=== PATIENT | male | born 1985 | race Two or more races ===

== ENCOUNTER 2020-10-28 15:34 | Emergency (ER) | payer OTHER, SELFPAY ==
--- NOTE | ~2020-10-28 | XR_ITS ---
EXAMINATION: XR CHEST CLINICAL INFORMATION: Question COVID COMPARISON: 02/20/2013 TECHNIQUE: Frontal view of the chest was obtained. FINDINGS: Lung volumes are slightly diminished from the prior study. No focal consolidation or mass. Normal pulmonary vascularity. No pleural effusion or pneumothorax. Normal heart size. No acute osseous abnormality. XR/XR chest 1V IMPRESSION: No acute pulmonary disease.
[2020-10-28 15:55] VITALS: BP 116/77; BP 170/100; PULSE 101; PULSE 90; RESP 16; TEMP 37.1; O2SAT 94; O2SAT 95; BMI 30.7
--- NOTE | 2020-10-28 16:14 | ED.GENADULT ---
HPI - General Adult General Chief complaint: Syncope Stated complaint: syncopal Time Seen by Provider: 10/28/20 16:14 Source: patient Mode of arrival: ambulatory Limitations: no limitations History of Present Illness HPI narrative: Patient otherwise healthy been having body aches nausea diarrhea for last 2 days went to clinic today and they did COVID testing result pending still feeling weak felt like passing out no chest pain no significant shortness of breath no cough family member sick Onset (ago): day(s) (2) Related Data Previous Rx's Medication Instructions Recorded ondansetron 4 mg PO Q6-8H PRN #7 tab 10/28/20 Allergies Allergy/AdvReac Type Severity Reaction Status Date / Time metoclopramide [From Reglan] AdvReac Palpitation Verified 10/28/20 16:00 s ANTINAUSEA MEDICATION Allergy Severe TACHYCARDIA Uncoded 03/18/20 17:01 Review of Systems Review of Systems: Constitutional : No Weight loss, No Fever, No Chills ENT/Mouth : No sore throat, No Rhinorrhea Eyes: No Eye Pain, No Swelling Cardiovascular : No Chest Pain, no palpitations Respiratory : No Cough, No Sputum, no shortness of breath Gastrointestinal : + Nausea, No Vomiting, + Diarrhea, No abdominal Pain, no black stools Genitourinary : No Dysuria, No Urinary Frequency Musculoskeletal : No joint pain, No Myalgias, No Joint Swelling Skin : No Skin Lesions, No rash Neuro : ++ Weakness, No Numbness, + Dizziness, No Headache Psych : No Anxiety/Panic, No Depression Heme/Lymph: No Bruising, No Lymphadenopathy Endocrine : No Polyuria, No Polydipsia All other systems reviewed and are negative [facility] Past Medical History Medical History Anxiety Asthma Social History Social History Alcohol intake: never Smoking Status: Never smoker Use of substances other than those prescribed or required for medical reasons: No Advance Directives: No Advance Directives Information Provided: No Physical Exam Vital Signs: Vital Signs: Last Vital Signs Temp 99.5 F 10/28/20 16:55 Pulse 87 10/28/20 16:55 Resp 15 10/28/20 16:55 BP 109/69 10/28/20 16:55 Pulse Ox 96 10/28/20 17:05 Body Mass Index 30.7 Appearance: Alert. Oriented X3. No acute distress. Eyes: PERRLA, No Nystagmus ENT: Pharynx normal. Oral Mucosa moist Neck: Normal inspection. Neck supple. CVS: Normal heart rate and rhythm. Pulses normal. Respiratory: No respiratory distress. Equal air entry bilateral, no wheezing/rales/rhonchi Abdomen: Soft and nontender. Bowel sounds are present, no mass palpable, no CVA tenderness Skin: Skin warm and dry. Normal skin color. Normal skin turgor. Extremities: No lower extremity edema. No calf tenderness Neuro: Oriented X 3. No motor deficit. No sensory deficit.No cerebellar signs , cranial nerves II-XII intact Medical Decision Making MDM Narrative Medical decision making narrative: Patient COVID-19 not hypoxic chest x-ray negative will discharge patient home for symptomatic treatment Lab Data Lab results reviewed: Yes I reviewed the patient's lab results. Result diagrams: 10/28/20 16:46 10/28/20 16:46 Labs: Lab Results 10/28/20 10/28/20 10/28/20 Range/Units 16:46 16:46 16:46 WBC 5.5 (4.8-10.8) X10*3/uL RBC 4.85 (4.60-5.80) X10*6/uL Hgb 14.2 (14.0-18.0) g/dl Hct 43.2 (42-52) % MCV 89.1 (80-98) fL MCH 29.3 (27.0-33.0) pg MCHC 32.9 (31.0-36.0) g/dl RDW 13.1 (11.0-16.0) % Plt Count 164 (160-400) X10*3/uL MPV 11.2 (9.4-12.4) fL Immature Gran % (Auto) 0.4 (0.0-0.4) % Neut % (Auto) 70.2 (45-73) % Lymph % (Auto) 11.6 L (20-40) % [place] % (Auto) 17.4 H (2-11) % Eos % (Auto) 0.2 (0-4) % Baso % (Auto) 0.2 (0-2) % Lymph # (Auto) 0.6 L (1.2-4.9) X10*3/uL [place] # (Auto) 1.0 (0.1-1.2) X10*3/uL Eos # (Auto) 0.0 (0.0-0.4) X10*3/uL Baso # (Auto) 0.0 (0.0-0.2) X10*3/uL Abs Immat Gran (auto) 0.02 (0.00-0.03) X10*3/uL Absolute Neuts (auto) 3.9 (2.0-8.3) X10*3/uL Absolute Nucleated RBC 0.000 (0.0-0.012) X10*3/uL Nucleated RBC % (auto) 0.0 (0.0-0.2) /100WBC Smear Tech's Comments VERIFIED Sodium 136 (135-145) mmol/L Potassium 3.6 (3.3-5.1) mmol/L Chloride 104 (96-108) mmol/L Carbon Dioxide 21 L (22-29) mmol/L Anion Gap 15 (12-20) BUN 14 (9-16) mg/dL Creatinine 1.28 (0.5-1.4) mg/dL Estim Creat Clear Calc 84.8 Estimated GFR > 60 Random Glucose 119 H (60-115) mg/dL Calcium 8.8 (8.4-10.2) mg/dL COVID-19 ([facility]) Positive A (Negative) COVID-19 Clin Com See Note Discharge Plan Discharge Clinical Impression: COVID-19 Patient Disposition: Home, Self-Care Instructions: COVID-19 (Coronavirus Disease 2019) (ED) Additional Instructions: Drink plenty of fluid social distancing report to the ER if increased shortness of breath Prescriptions: New ondansetron 4 mg tablet,disintegrating 4 mg PO Q6-8H PRN (Reason: nausea and vomiting) Qty: 7 RF: 0 Stand Alone Forms: Work/School Release
[2020-10-28] MEDS: 0.9 % Sodium Chloride 1,000 ML 999 ML IVCONT (16:47)
[2020-10-28] MEDS: ondansetron HCL 4 MG/2 ML VIAL IVPUSH (16:53)
[2020-10-28 16:55] VITALS: BP 109/69; PULSE 87; RESP 15; TEMP 37.5; O2SAT 96
[2020-10-28 16:59] LABS: Basophils Percent Auto 0.2 % (0-2); Eosinophils Percent Auto 0.2 % (0-4); Hematocrit 43.2 % (42-52); Hemoglobin 14.2 g/dl (14.0-18.0); Imm Gran Abs Auto 0.02 X10*3/uL (0.00-0.03); Imm Gran Pct Auto 0.4 % (0.0-0.4); Lymphocytes Absolute Auto 0.6 X10*3/uL (1.2-4.9); Lymphocytes Percent Auto 11.6 % (20-40); MANUAL DIFF FLAG SCAN; Mean Corpuscular HGB Conc 32.9 g/dl (31.0-36.0); Mean Corpuscular Hemoglobin 29.3 pg (27.0-33.0); Mean Corpuscular Volume 89.1 fL (80-98); Mean Platelet Volume 11.2 fL (9.4-12.4); Monocytes Percent Auto 17.4 % (2-11); Neutrophils Absolute Auto 3.9 X10*3/uL (2.0-8.3); Neutrophils Percent Auto 70.2 % (45-73); Platelet Count 164 X10*3/uL (160-400); Red Blood Count 4.85 X10*6/uL (4.60-5.80); Red Cell Distribution Width 13.1 % (11.0-16.0); SCAN SMEAR FLAG 1; White Blood Count 5.5 X10*3/uL (4.8-10.8)
--- NOTE | 2020-10-28 17:04 | PC.NURSE ---
iv inserted, labs drawn, covid swab obtained, ekg performed, property assessment monitor applied- nsr 80s, vss, will continue to monitor
[2020-10-28 17:05] VITALS: O2SAT 96
[2020-10-28 17:05] LABS: COVID-19 Test Positive (Negative); IDNOW Serial# 9DD0AD1C
--- NOTE | 2020-10-28 17:05 | PC.NURSE ---
pt medicated per order
[2020-10-28 17:14] LABS: Anion Gap 15 (12-20); Blood Urea Nitrogen 14 mg/dL (9-16); Calcium 8.8 mg/dL (8.4-10.2); Carbon Dioxide 21 mmol/L (22-29); Chloride 104 mmol/L (96-108); Creatinine Clr Calc Pharmacy 84.8; Estimated Glomerular Filt Rate > 60; Glucose Random 119 mg/dL (60-115); Potassium 3.6 mmol/L (3.3-5.1); Sodium 136 mmol/L (135-145)
[2020-10-28 17:22] LABS: SLIDE REVIEW VERIFIED
[2020-10-28 18:29] VITALS: BP 113/72; PULSE 72; RESP 18; TEMP 37.4; O2SAT 97
--- NOTE | 2020-10-28 18:33 | PC.NURSE ---
pt is discharged, waiting in room for brother to get here, charge and nurse in section aware
--- NOTE | 2020-10-30 07:18 | ECG_ITS ---
Test Reason : SYNCOPE Blood Pressure : / mmHG Vent. Rate : 084 BPM Atrial Rate : 084 BPM P-R Int : 136 ms QRS Dur : 104 ms QT Int : 370 ms P-R-T Axes : 060 011 035 degrees QTc Int : 437 ms Normal sinus rhythm Normal ECG When compared with ECG of 21-FEB-2013 01:26, Vent. rate has increased BY 45 BPM Referred By: Von Whitaker Electronically Signed By:MILTON NASH MD
== END 2020-10-28 18:33 | disposition home or self-care (01) ==
PROVIDERS: Emergency Provider Internal Medicine
DX: U07.1 COVID-19 (principal)
CPT/HCPCS: 36415; 71045; 80048; 85025; 87635; 93005; 96361; 96374; 99284; 99285; J2405

== ENCOUNTER 2021-05-07 07:09 | Emergency (ER) | payer OTHER, SELFPAY ==
[2021-05-07 07:31] VITALS: BP 124/87; PULSE 84; RESP 16; TEMP 36.6; O2SAT 99; BMI 31.3
--- NOTE | 2021-05-07 07:41 | ED_ITS ---
HPI - Abdominal Pain General Chief Complaint: Abdominal Pain Stated Complaint: abd issues Time Seen by Provider: 05/07/21 07:39 History of Present Illness HPI narrative: Patient is a 35-year-old male presents today with having abdominal pain. The pain is over the epigastric area. Sometimes worse at night. The pain is burning. It has been ongoing. Had a history of H pylori. Question adenopathy in the past. No history of abdominal surgery. No chest pain or shortness of breath or diaphoresis. Patient is from home. No cough no congestion or upper respiratory symptoms. No change in bowel movement. No vomiting. Patient from home. Patient try Prilosec last night to no avail. Was previously treated for H pylori. Patient complained of multiple bowel movements per night. Sometimes diarrhea. Related Data Previous Rx's Medication Instructions Recorded ondansetron 4 mg disintegrating 4 mg PO Q6-8H PRN #7 tab 10/28/20 tablet Allergies Allergy/AdvReac Type Severity Reaction Status Date / Time metoclopramide [From [facility]] AdvReac Palpitation Verified 10/28/20 16:00 s ANTINAUSEA MEDICATION Allergy Severe TACHYCARDIA Uncoded 03/18/20 17:01 Review of Systems Review of Systems No fever no chills no cough no congestion or upper respiratory symptoms Positive epigastric pain + diarrhea All systems reviewed otherwise negative Yes all other systems are reviewed and are negative Physical Exam Vital Signs: Vital Signs: Last Vital Signs Temp 98 F 05/07/21 07:31 Pulse 60 05/07/21 09:02 Resp 16 05/07/21 09:02 BP 141/88 H 05/07/21 09:02 Pulse Ox 98 05/07/21 09:02 Body Mass Index 31.3 Appearance: Alert. Oriented X3. No acute distress. Eyes: Pupils equal, round and reactive to light. ENT: Pharynx normal. Neck: Normal inspection. Neck supple. No lymph nodes noted. No crepitus CVS: Normal heart rate and rhythm. Pulses normal. Normal S1 and S2 Respiratory: No respiratory distress. Breath sounds normal. No Wheezing. No rales Abdomen: Soft and nontender. No rigidity. No distention. good BS x4 Skin: Skin warm and dry. Normal skin color. Normal skin turgor. Extremities: No lower extremity edema. Neurovascular intact to all extremities. No Lacerations. No Rash Neuro: Oriented X 3. No motor deficit. No sensory deficit. Moving all extermities. No slurred speech MDM - Abdominal Pain MDM Narrative Medical decision making narrative: Well-appearing electrolytes is normal. LFT is normal. Patient's given a GI cocktail. If urine is negative will discharge patient home. Continue PPI. Close follow-up on an outpatient basis. In stable condition. Repeat exam was normal. Differential Diagnosis Differential diagnosis: Likely abdominal pain Medical Records Attestation: I reviewed the patient's medical records. Lab Data Attestation: I reviewed the patient's lab results. Result diagrams: 05/07/21 08:05 05/07/21 08:05 Labs: Lab Results 05/07/21 05/07/21 05/07/21 Range/Units 08:05 08:05 09:04 WBC 6.1 (4.8-10.8) X10*3/uL RBC 4.92 (4.60-5.80) X10*6/uL Hgb 14.9 (14.0-18.0) g/dl Hct 44.2 (42.0-52.0) % MCV 89.8 (80.0-98.0) fL MCH 30.3 (27.0-33.0) pg MCHC 33.7 (31.0-36.0) g/dl RDW 12.6 (11.0-16.0) % Plt Count 179 (160-400) X10*3/uL MPV 11.0 (9.4-12.4) fL Immature Gran % (Auto) 0.2 (0.0-0.4) % Neut % (Auto) 52.3 (45-73) % Lymph % (Auto) 36.0 (20-40) % [place] % (Auto) 9.9 (2-11) % Eos % (Auto) 1.3 (0-4) % Baso % (Auto) 0.3 (0-2) % Lymph # (Auto) 2.2 (1.2-4.9) X10*3/uL [place] # (Auto) 0.6 (0.1-1.2) X10*3/uL Eos # (Auto) 0.1 (0.0-0.4) X10*3/uL Baso # (Auto) 0.0 (0.0-0.2) X10*3/uL Abs Immat Gran (auto) 0.01 (0.00-0.03) X10*3/uL Absolute Neuts (auto) 3.2 (2.0-8.3) x10*3/uL Absolute Nucleated RBC 0.000 (0.0-0.012) X10*3/uL Nucleated RBC % (auto) 0.0 (0.0-0.2) /100WBC Sodium 141 (135-145) mmol/L Potassium 4.3 (3.3-5.1) mmol/L Chloride 108 (96-108) mmol/L Carbon Dioxide 24 (22-29) mmol/L Anion Gap 13 (12-20) BUN 18 H (9-16) mg/dL Creatinine 1.06 (0.5-1.4) mg/dL Estim Creat Clear Calc 103.4 Estimated GFR > 60 Random Glucose 96 (60-115) mg/dL Calcium 9.6 D (8.4-10.2) mg/dL Total Bilirubin 0.8 (0.0-1.0) mg/dL Direct Bilirubin 0.3 (0.0-0.5) mg/dL AST 27 (5-37) U/L ALT 34 (0-40) U/L Alkaline Phosphatase 39 (39-117) U/L Total Protein 7.5 (6.5-8.0) g/dL Albumin 4.5 (3.5-5.0) g/dL Lipase 18 (8-78) U/L Urine Color YELLOW Urine Appearance CLEAR Urine pH 6.0 (5.0-8.0) Ur Specific [place] 1.025 (1.005-1.025) Urine Protein NEG (NEG-TRACE) MG/DL Urine Glucose (UA) NEG (NEG) MG/DL Urine Ketones NEG (NEG) MG/DL Urine Blood NEG (NEG) Urine Nitrite NEG (NEG) Ur Leukocyte Esterase NEG (NEG) Discharge Plan Discharge Clinical Impression: Gastritis Patient Disposition: Home, Self-Care Instructions: Gastritis (ED) Prescriptions: No Action ondansetron 4 mg tablet,disintegrating 4 mg PO Q6-8H PRN (Reason: nausea and vomiting) Qty: 7 RF: 0 Referrals: Physician,Unknown J [Primary Care Provider] - 2 days [facility] Past Medical History Attestation statement: The following information was validated with the patient. Medical History Anxiety Asthma H. pylori infection Social History Social History Alcohol intake: never Advance Directives: No
[2021-05-07] MEDS: Ondansetron ODT 4 MG TAB.RAPDIS TRANSLINGU (08:00)
[2021-05-07 08:09] VITALS: BP 134/92; PULSE 80; RESP 15; O2SAT 98
[2021-05-07 08:19] LABS: MANUAL DIFF FLAG NO
[2021-05-07] MEDS: Magnesium Hydrox/Alum Hydrox 30 ML ORAL.SUSP PO (08:21)
[2021-05-07] MEDS: Lidocaine HCl Viscous 2 % 15 ML SOLUTION MUCOUS MEM (08:21)
[2021-05-07] MEDS: PHENobarb/Hyoscy/Atropine/Scop 10 ML ELIXIR PO (08:21)
[2021-05-07 08:38] LABS: Alanine Aminotransferase 34 U/L (0-40); Albumin Level 4.5 g/dL (3.5-5.0); Alkaline Phosphatase 39 U/L (39-117); Anion Gap 13 (12-20); Aspartate Amino Transferase 27 U/L (5-37); Basophils Percent Auto 0.3 % (0-2); Bilirubin Direct 0.3 mg/dL (0.0-0.5); Bilirubin Total 0.8 mg/dL (0.0-1.0); Blood Urea Nitrogen 18 mg/dL (9-16); Calcium 9.6 mg/dL (8.4-10.2); Carbon Dioxide 24 mmol/L (22-29); Chloride 108 mmol/L (96-108); Creatinine Clr Calc Pharmacy 103.4; Eosinophils Absolute Auto 0.1 X10*3/uL (0.0-0.4); Eosinophils Percent Auto 1.3 % (0-4); Estimated Glomerular Filt Rate > 60; Glucose Random 96 mg/dL (60-115); Hematocrit 44.2 % (42.0-52.0); Hemoglobin 14.9 g/dl (14.0-18.0); Imm Gran Abs Auto 0.01 X10*3/uL (0.00-0.03); Imm Gran Pct Auto 0.2 % (0.0-0.4); Lipase 18 U/L (8-78); Lymphocytes Absolute Auto 2.2 X10*3/uL (1.2-4.9); Mean Corpuscular HGB Conc 33.7 g/dl (31.0-36.0); Mean Corpuscular Hemoglobin 30.3 pg (27.0-33.0); Mean Corpuscular Volume 89.8 fL (80.0-98.0); Monocytes Absolute Auto 0.6 X10*3/uL (0.1-1.2); Monocytes Percent Auto 9.9 % (2-11); Neutrophils Absolute Auto 3.2 x10*3/uL (2.0-8.3); Neutrophils Percent Auto 52.3 % (45-73); Platelet Count 179 X10*3/uL (160-400); Potassium 4.3 mmol/L (3.3-5.1); Red Blood Count 4.92 X10*6/uL (4.60-5.80); Red Cell Distribution Width 12.6 % (11.0-16.0); Sodium 141 mmol/L (135-145); Total Protein 7.5 g/dL (6.5-8.0); White Blood Count 6.1 X10*3/uL (4.8-10.8)
[2021-05-07 09:02] VITALS: BP 141/88; PULSE 60; RESP 16; O2SAT 98
[2021-05-07 09:26] LABS: Appearance Urine CLEAR; Color Urine YELLOW; Glucose Urine UA NEG (NEG); Leukocyte Esterase Urine NEG (NEG); Nitrite Urine NEG (NEG); Specific Gravity - Urine 1.025 (1.005-1.025); Urine Blood NEG (NEG); Urine Ketones NEG (NEG); Urine Protein NEG (NEG-TRACE)
== END 2021-05-07 09:35 | disposition home or self-care (01) ==
PROVIDERS: Emergency Provider Emergency Medicine Emergency Medical Services
DX: K29.70 Gastritis, unspecified, without bleeding (principal); Z79.899 Other long term (current) drug therapy
CPT/HCPCS: 36415; 80048; 80076; 81003; 83690; 85025; 99284

== ENCOUNTER 2021-06-16 09:55 | Outpatient (RCR) | payer OTHER, SELFPAY ==
--- NOTE | 2021-06-16 11:10 | MHC.PT.EP ---
[facility] [place] Office [place] Office [place] Office [address] [phone] F: [phone] F: [phone] F: [phone] F: [phone] Physical Therapy Plan of Care Date of Evaluation: Date of Surgery: Diagnosis: thoracic myofascial strain Assessment: Patient is a 35 year old R handed male who presents with s/s consistent with thoracic strain. 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 Patient past medical history is unremarkable. Current impairments include pain, activity tolerance and functional mobility. Functional limitations include decreased ability to lift, carry, push, pull, and perform weight bearing activities.. Patient is motivated with good rehab potential. Skilled PT will address impairments and functional limitations in order to achieve goals. 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 Manual therapy to restore motion and function. Therapeutic exercise to improve strength and flexibility. Neuromuscular re-education for posture and balance. Therapeutic activities to return to functional activities of daily living. Electronically signed by: Chaparro Jones PT Please sign and return to therapist. Thank you for your referral.
--- NOTE | 2021-08-05 09:44 | MHC.PT.DC ---
[facility] [place] Office [place] Office [place] Office [address] [facility] [phone] F: [phone] F: [phone] F: [phone] F: [phone] Physical Therapy Discharge Report Diagnosis: thoracic myofascial strain Date of Surgery: Date of Evaluation: 06/16/21 Date of Discharge: 06/18/21 Treatments to Date: 1 Cancellations to Date: No Shows to Date: Discharge Status: Patient Elected to Stop Discharge Summary: Pt did not follow up with future appointments after evaluation. Patient is a 35 year old R handed male who presents with s/s consistent with thoracic strain. 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 Patient past medical history is unremarkable. Current impairments include pain, activity tolerance and functional mobility. Functional limitations include decreased ability to lift, carry, push, pull, and perform weight bearing activities.. Patient is motivated with good rehab potential. Skilled PT will address impairments and functional limitations in order to achieve goals. Electronically signed by: Chaparro Jones, PT Please sign and return to therapist. Thank you for your referral.
== END 2021-06-18 07:00 | disposition home or self-care (01) ==
LOC: HO.PTCHIC 09:55
PROVIDERS: PCP Internal Medicine; Visit Provider Physician Assistant Medical
DX: S29.019D Strain of muscle and tendon of unspecified wall of thorax, subsequent encounter (principal)
CPT/HCPCS: 97110; 97161; 97530

== ENCOUNTER 2021-10-10 14:02 | Emergency (ER) | payer OTHER, SELFPAY ==
--- NOTE | ~2021-10-10 | US_ITS ---
EXAMINATION: US SCROTUM CLINICAL INFORMATION: Left testicular pain COMPARISON: None TECHNIQUE: A sonogram of the scrotum was performed assessing moncada-scale appearance and color Doppler flow. Spectral Doppler analysis of the arterial and venous flow were performed in the testes bilaterally. FINDINGS: RIGHT: Right testicle measures 4.4 x 2.6 x 3.3 cm, volume 19.6 mL. No focal testicular parenchymal lesions are visualized. Spectral Doppler analysis of the arterial and venous flow is normal in the right testis. Right epididymal head is normal in size. A small epididymal cyst is seen measuring 0.4 x 0.4 x 0.4 cm. There is a small right hydrocele. No varicocele is seen. Right epididymal Doppler flow is normal. LEFT: Left testicle measures 3.3 x 2.5 x 3.2 cm, volume 13.9 mL. No focal testicular parenchymal lesions are visualized. Spectral Doppler analysis of the arterial and venous flow is normal in the left testis. Left epididymal head is normal in size. There is a small left hydrocele. No varicocele is seen. Left epididymal Doppler flow is normal. US/US scrotum doppler IMPRESSION: Bilateral small hydroceles. Small right epididymal cyst. Both testes and epididymis are otherwise unremarkable.
[2021-10-10 14:52] VITALS: BP 129/88; PULSE 96; RESP 18; TEMP 36.1; O2SAT 99; BMI 27.9
[2021-10-10 15:17] LABS: MANUAL DIFF FLAG NO
[2021-10-10 15:19] LABS: Basophils Percent Auto 0.4 % (0-2); Eosinophils Absolute Auto 0.2 X10*3/uL (0.0-0.4); Eosinophils Percent Auto 2.1 % (0-4); Hematocrit 46.2 % (42.0-52.0); Hemoglobin 15.3 g/dl (14.0-18.0); Imm Gran Abs Auto 0.01 X10*3/uL (0.00-0.03); Imm Gran Pct Auto 0.1 % (0.0-0.4); Lymphocytes Absolute Auto 2.5 X10*3/uL (1.2-4.9); Lymphocytes Percent Auto 34.4 % (20-40); Mean Corpuscular HGB Conc 33.1 g/dl (31.0-36.0); Mean Corpuscular Hemoglobin 29.4 pg (27.0-33.0); Mean Corpuscular Volume 88.8 fL (80.0-98.0); Mean Platelet Volume 11.4 fL (9.4-12.4); Monocytes Absolute Auto 0.7 X10*3/uL (0.1-1.2); Monocytes Percent Auto 9.6 % (2-11); Neutrophils Absolute Auto 3.8 x10*3/uL (2.0-8.3); Neutrophils Percent Auto 53.4 % (45-73); Platelet Count 222 X10*3/uL (160-400); Red Cell Distribution Width 12.8 % (11.0-16.0); White Blood Count 7.2 X10*3/uL (4.8-10.8)
[2021-10-10 15:25] LABS: Appearance Urine CLEAR; Color Urine YELLOW; Glucose Urine UA NEG (NEG); Leukocyte Esterase Urine NEG (NEG); Nitrite Urine NEG (NEG); PH 5.5 (5.0-8.0); Specific Gravity - Urine >= 1.030 (1.005-1.025); Urine Blood NEG (NEG); Urine Ketones 15 MG/DL (NEG); Urine Protein TRACE MG/DL (NEG-TRACE)
--- NOTE | 2021-10-10 15:32 | ED.MALEGU ---
HPI - Male Genitourinary General Chief complaint: Urogenital-Male Stated complaint: TESTICLE PAIN Time Seen by Provider: 10/10/21 15:16 Source: patient Mode of arrival: ambulatory Limitations: no limitations History of Present Illness HPI Narrative: Patient is a 35 year old male presenting to the emergency department today with testicular pain. Patient states that for the last week he has had testicular pain that sometimes radiates into his lower abdomen. Patient denies any dizziness, lightheadedness, abdominal pain, nausea, vomiting, fever, chills, blurry vision, double vision, loss of vision, chest pain, difficulty breathing, shortness of breath, back pain, night sweats, pain with urination, increased urinary frequency, increased urinary urgency, blood in his urine or stool, syncope or a near syncopal episode, recent trauma or falls, bowel incontinence, bladder incontinence, bowel retention, bladder retention, or any other complaints at this time. Patient states that he is in a committed relationship with no concern of STIs..? MD Complaint: testicle pain Onset (ago): week(s) (1) Duration: intermittent Location: right testicle and left testicle Radiation: abdomen Severity: mild Severity scale (1-10): 3 Quality: dull Relieving factors: none Exacerbating factors: none Associated symptoms: Reports denies other symptoms Related Data Previous Rx's Medication Instructions Recorded cyclobenzaprine 5 mg tablet 5 mg PO TID PRN #10 tab 06/07/21 naproxen 500 mg tablet (Naprosyn) 500 mg PO BID PRN #30 tab 06/07/21 doxycycline hyclate 100 mg tablet 150 mg PO BID 7 Days #21 tab 10/10/21 Allergies Allergy/AdvReac Type Severity Reaction Status Date / Time metoclopramide [From Reglan] AdvReac Palpitation Verified 07/22/21 09:00 s ANTIN[place]SEA MEDICATION Allergy Severe TACHYCARDIA Uncoded 03/18/20 17:01 Review of Systems Constitutional: Constitutional: Reports no additional constitutional complaints, Denies chills, Denies fever(s) and Denies night sweats Eyes: Eyes: Reports no additional eye complaints, Denies blurry vision, Denies change in vision, Denies diplopia, Denies eye discharge, Denies loss of vision and Denies eye pain ENT: Denies dizziness Cardiovascular: Cardiovascular: Reports no additional cardiovascular complaints, Denies chest pain, Denies lightheadedness, Denies Loss of Consciousness and Denies dyspnea Respiratory: Respiratory: Reports no additional respiratory complaints and Denies dyspnea Gastrointestinal: Gastrointestinal: Reports no additional gastrointestinal complaints, Denies abdominal pain, Denies melena, Denies hematochezia, Denies change in bowel habits and Denies change in stool character Genitourinary: Genitourinary: Reports no additional male genitourinary complaints, Denies hematuria, Denies oliguria, Denies difficulty urinating, Denies dysuria, Reports testicular pain, Denies urinary frequency, Denies urinary hesitancy, Denies urinary incontinence and Denies urinary urgency Musculoskeletal: Musculoskeletal: Reports no additional musculoskeletal complaints, Denies numbness and Denies tingling Neurologic: Denies dizziness, Denies loss of vision, Denies numbness and Denies tingling Psychiatric: Psychiatric: Reports no additional psychiatric complaints Endocrine: Endocrine: Reports no additional endocrine complaints Hematologic/Lymphatic: Hematologic/Lymphatic: Reports no additional hematologic/lymphatic complaints Allergic/Immunologic: Allergic/Immunologic: Reports no additional allergic/immunologic complaints PMFSH Past Medical History Attestation statement: The following information was validated with the patient. Source: old records reviewed Medical History Anxiety Asthma H. pylori infection Social History Social History Alcohol intake: never Patient Tobacco Use Status: Never used Tobacco Advance Directives: No Advance Directives Information Provided: No Physical Exam Vital Signs: Vital Signs: Last Vital Signs Temp 97.8 F 10/10/21 18:09 Pulse 73 10/10/21 18:09 Resp 18 10/10/21 18:09 BP 138/84 10/10/21 18:09 Pulse Ox 98 10/10/21 18:09 BMI result Body Mass Index 27.9 Const: General: cooperative, no acute distress, alert and awake Nutritional Appearance: well nourished Orientation/consciousness: patient oriented x3 Limitations: no limitations HEENT: Head: Yes normal to inspection and Yes atraumatic Ears: hearing grossly normal bilaterally and external ears normal General nose exam: Normal external nose present, no nasal discharge noted and no epistaxis Face and sinus: Yes normal facial exam, No abrasion and No laceration Mouth: Normal oral and palatal mucosa present, no drooling and no muffled voice Eyes: General: appearance normal, both eyes and all related structures Periorbital: periorbital findings normal Eyelids: Yes eyelids normal Conjunctivae: conjunctivae normal Pupils: Equal, round and reactive pupils present EOM: EOMs intact bilaterally Neck: Neck: Yes normal visual inspection, Yes full ROM and Yes no lymphadenopathy Chest: Chest palpation & inspection: normal inspection of the chest Resp: Effort & Inspection: normal respiratory effort and able to speak in complete sentences Auscultation: clear to auscultation bilaterally Cardio: Rate: regular rate Rhythm: regular rhythm GI: Inspection: Yes normal to inspection : Male General Exam: Yes normal external exam Penis: normal penis Scrotum: scrotum normal and no scrotal swelling Neuro: General: patient oriented x3 and moves all extremities Cranial nerves: Yes Equal, round and reactive pupils present Cognition (Neuro): normal cognition Motor exam (neuro): 5/5 motor strength present throughout Sensory Exam: Normal double simultaneous stimulation for sensation Coordination: [id number] test normal Extrem: General: Yes normal to inspection, Yes full ROM and Yes capillary refill normal Psych: Appearance: grossly normal Mental Status: mental status grossly normal Affect: normal affect Attitude: cooperative Thought process: Normal thought process present Thought content: Normal thought content present Insight: Good insight present (Psych) MDM - Male Genitourinary MDM Narrative Medical decision making narrative: Patient is a 35 year old male presenting to the emergency department today with testicular pain. Patient's physical exam was unremarkable. Patient's blood work was unremarkable. Patient's urine showed no acute process. Patient's scrotal ultrasound showed bilateral hydroceles that are small and a small right epididymal cyst. I explained my physical exam findings as well as all test results to the patient. I answered all questions asked by the patient. Patient was treated for STIs prophylactically. I stressed the importance of the patient taking his medication as prescribed. I stressed the importance of the patient following up with his primary care provider and a urologist. I stressed the importance of the patient returning to the emergency department immediately if his symptoms were to worsen or if he were to develop any dizziness, shortness of breath, difficulty breathing, chest pain, blurry vision, loss of vision, nausea, vomiting, abdominal pain, fever, chills, back pain, or any other complaints. Patient verbalized agreement and understanding with this treatment plan and discharge. Differential Diagnosis Differential diagnosis: Likely urinary tract infection and epididymitis Medical Records Attestation: I reviewed the patient's medical records. Lab Data Attestation: I reviewed the patient's lab results. Result diagrams: 10/10/21 15:05 10/10/21 15:05 Labs: Lab Results 10/10/21 10/10/21 10/10/21 Range/Units 15:05 15:05 15:11 WBC 7.2 (4.8-10.8) X10*3/uL RBC 5.20 (4.60-5.80) X10*6/uL Hgb 15.3 (14.0-18.0) g/dl Hct 46.2 (42.0-52.0) % MCV 88.8 (80.0-98.0) fL MCH 29.4 (27.0-33.0) pg MCHC 33.1 (31.0-36.0) g/dl RDW 12.8 (11.0-16.0) % Plt Count 222 (160-400) X10*3/uL MPV 11.4 (9.4-12.4) fL Immature Gran % (Auto) 0.1 (0.0-0.4) % Neut % (Auto) 53.4 (45-73) % Lymph % (Auto) 34.4 (20-40) % [place] % (Auto) 9.6 (2-11) % Eos % (Auto) 2.1 (0-4) % Baso % (Auto) 0.4 (0-2) % Lymph # (Auto) 2.5 (1.2-4.9) X10*3/uL [place] # (Auto) 0.7 (0.1-1.2) X10*3/uL Eos # (Auto) 0.2 (0.0-0.4) X10*3/uL Baso # (Auto) 0.0 (0.0-0.2) X10*3/uL Abs Immat Gran (auto) 0.01 (0.00-0.03) X10*3/uL Absolute Neuts (auto) 3.8 (2.0-8.3) x10*3/uL Absolute Nucleated RBC 0.000 (0.0-0.012) X10*3/uL Nucleated RBC % (auto) 0.0 (0.0-0.2) /100WBC Sodium 138 (135-145) mmol/L Potassium 4.8 (3.3-5.1) mmol/L Chloride 104 (96-108) mmol/L Carbon Dioxide 24 (22-29) mmol/L Anion Gap 15 (12-20) BUN 20 H (9-16) mg/dL Creatinine 1.20 (0.5-1.4) mg/dL Estim Creat Clear Calc 95.3 Estimated GFR > 60 Random Glucose 91 (60-115) mg/dL Calcium 11.0 H D (8.4-10.2) mg/dL Total Bilirubin 0.6 (0.0-1.0) mg/dL AST 35 (5-37) U/L ALT 38 (0-40) U/L Alkaline Phosphatase 42 (39-117) U/L Total Protein 8.2 H (6.5-8.0) g/dL Albumin 5.0 (3.5-5.0) g/dL Urine Color YELLOW Urine Appearance CLEAR Urine pH 5.5 (5.0-8.0) Ur Specific [place] >= 1.030 H (1.005-1.025) Urine Protein TRACE (NEG-TRACE) MG/DL Urine Glucose (UA) NEG (NEG) MG/DL Urine Ketones 15 (NEG) MG/DL Urine Blood NEG (NEG) Urine Nitrite NEG (NEG) Ur Leukocyte Esterase NEG (NEG) Urine RBC 0 (0) /HPF Urine WBC 0 (0-4) /HPF Ur Squamous Epith Cells TRACE /LPF Urine Bacteria NONE /LPF Imaging Data Scrotal US: Attestation: I personally reviewed and interpreted this imaging study as follows: Radiologist's impression: EXAMINATION: US SCROTUM CLINICAL INFORMATION: Left testicular pain COMPARISON: None TECHNIQUE: A sonogram of the scrotum was performed assessing moncada-scale appearance and color Doppler flow. Spectral Doppler analysis of the arterial and venous flow were performed in the testes bilaterally. FINDINGS: RIGHT: Right testicle measures 4.4 x 2.6 x 3.3 cm, volume 19.6 mL. No focal testicular parenchymal lesions are visualized. Spectral Doppler analysis of the arterial and venous flow is normal in the right testis. Right epididymal head is normal in size. A small epididymal cyst is seen measuring 0.4 x 0.4 x 0.4 cm. There is a small right hydrocele. No varicocele is seen. Right epididymal Doppler flow is normal. LEFT: Left testicle measures 3.3 x 2.5 x 3.2 cm, volume 13.9 mL. No focal testicular parenchymal lesions are visualized. Spectral Doppler analysis of the arterial and venous flow is normal in the left testis. Left epididymal head is normal in size. There is a small left hydrocele. No varicocele is seen. Left epididymal Doppler flow is normal. US/US scrotum doppler IMPRESSION: Bilateral small hydroceles. ? Small right epididymal cyst. ? Both testes and epididymis are otherwise unremarkable. Dictated By: Vince Rai MD Signed By: Electronically signed by Vince Rai MD 10/10/21 [id number] Discharge Plan Discharge Clinical Impression: Pain in testicle Patient Disposition: Home, Self-Care Instructions: Testicle Pain (ED) Additional Instructions: Follow up with your primary care provider. Return to the emergency department immediately if your symptoms worsen or if you develop any dizziness, shortness of breath, difficulty breathing, chest pain, blurry vision, loss of vision, nausea, vomiting, abdominal pain, fever, chills, back pain, or any other complaints. Prescriptions: New doxycycline hyclate 100 mg tablet 150 mg PO BID 7 Days Qty: 21 0RF No Action cyclobenzaprine 5 mg tablet 5 mg PO TID PRN (Reason: muscle spasm) Qty: 10 0RF naproxen [Naprosyn] 500 mg tablet 500 mg PO BID PRN (Reason: pain) Qty: 30 0RF Referrals: Nii Cedeño MD [Physician] - Dav Chi III, MD [Primary Care Provider] - Stand Alone Forms: Work/School Release Interventions: ED Discharge Assessment Last Done: 10/10/21 18:49 Print Language: Swedish
[2021-10-10 15:36] LABS: Alanine Aminotransferase 38 U/L (0-40); Alkaline Phosphatase 42 U/L (39-117); Anion Gap 15 (12-20); Aspartate Amino Transferase 35 U/L (5-37); Bilirubin Total 0.6 mg/dL (0.0-1.0); Blood Urea Nitrogen 20 mg/dL (9-16); Carbon Dioxide 24 mmol/L (22-29); Chloride 104 mmol/L (96-108); Creatinine Clr Calc Pharmacy 95.3; Estimated Glomerular Filt Rate > 60; Glucose Random 91 mg/dL (60-115); Potassium 4.8 mmol/L (3.3-5.1); Sodium 138 mmol/L (135-145); Total Protein 8.2 g/dL (6.5-8.0)
[2021-10-10 15:42] LABS: RBC Urine 0 /HPF (0); Squamous Epithelial Cell Urine TRACE /LPF; WBC Urine 0 /HPF (0-4)
[2021-10-10 18:09] VITALS: BP 138/84; PULSE 73; RESP 18; TEMP 36.6; O2SAT 98
[2021-10-10] MEDS: cefTRIAXone sodium 500 MG VIAL IM (18:44)
[2021-10-11 05:53] LABS: CT PCR NOT DETECTED (Not Detect.); NG PCR NOT DETECTED (Not Detect.)
== END 2021-10-10 18:50 | disposition home or self-care (01) ==
PROVIDERS: Emergency Provider Internal Medicine; PCP Internal Medicine
DX: N50.812 Left testicular pain (principal); N50.811 Right testicular pain
CPT/HCPCS: 36415; 80053; 81001; 85025; 87491; 87591; 93975; 96372; 99283; 99284; J0696

== ENCOUNTER → 2022-08-10 13:32 | Outpatient (BNVA) | payer OTHER, SELFPAY | PROVIDERS: PCP Internal Medicine; Visit Provider Urology | DX: Z13.89 Encounter for screening for other disorder (principal) ==

== ENCOUNTER 2023-11-11 06:38 | Emergency (ER) | payer OTHER, SELFPAY ==
--- NOTE | 2023-11-11 | ECG_ITS ---
Test Reason : CHEST PAIN Blood Pressure : / mmHG Vent. Rate : 080 BPM Atrial Rate : 080 BPM P-R Int : 130 ms QRS Dur : 104 ms QT Int : 370 ms P-R-T Axes : 073 033 033 degrees QTc Int : 426 ms Normal sinus rhythm with sinus arrhythmia Minimal voltage criteria for LVH, may be normal variant ( Sinan product ) Borderline ECG When compared with ECG of 28-OCT-2020 16:50, No significant change was found Referred By: Generic ED Physician Electronically Signed By:Kalia Kent
[2023-11-11 06:53] VITALS: BP 140/87; PULSE 77; RESP 16; TEMP 36.6; O2SAT 98; BMI 31.3
[2023-11-11 06:53] LABS: MANUAL DIFF FLAG NO
[2023-11-11 06:59] LABS: Basophils Percent Auto 0.5 % (0-2); Eosinophils Absolute Auto 0.1 X10*3/uL (0.0-0.4); Eosinophils Percent Auto 1.7 % (0-4); Hematocrit 45.4 % (42.0-52.0); Hemoglobin 15.6 g/dl (14.0-18.0); Imm Gran Abs Auto 0.02 X10*3/uL (0.00-0.03); Imm Gran Pct Auto 0.3 % (0.0-0.4); Lymphocytes Percent Auto 39.5 % (20-40); Mean Corpuscular HGB Conc 34.4 g/dl (31.0-36.0); Mean Corpuscular Hemoglobin 30.5 pg (27.0-33.0); Mean Corpuscular Volume 88.8 fL (80.0-98.0); Mean Platelet Volume 10.9 fL (9.4-12.4); Monocytes Absolute Auto 0.8 X10*3/uL (0.1-1.2); Monocytes Percent Auto 10.5 % (2-11); Neutrophils Absolute Auto 3.7 x10*3/uL (2.0-8.3); Neutrophils Percent Auto 47.5 % (45-73); Platelet Count 205 X10*3/uL (160-400); Red Blood Count 5.11 X10*6/uL (4.60-5.80); Red Cell Distribution Width 12.7 % (11.0-16.0); White Blood Count 7.7 X10*3/uL (4.8-10.8)
[2023-11-11 07:10] LABS: Alanine Aminotransferase 52 U/L (0-40); Albumin Level 4.7 g/dL (3.5-5.0); Alkaline Phosphatase 46 U/L (39-117); Anion Gap 16 (12-20); Aspartate Amino Transferase 57 U/L (5-37); Bilirubin Total 0.7 mg/dL (0.0-1.0); Blood Urea Nitrogen 17 mg/dL (9-16); Calcium 10.2 mg/dL (8.4-10.2); Carbon Dioxide 24 mmol/L (22-29); Chloride 105 mmol/L (96-108); Creatinine Clr Calc Pharmacy 95.1; Estimated Glomerular Filt Rate > 60; Glucose Random 111 mg/dL (60-115); Potassium 4.5 mmol/L (3.3-5.1); Sodium 140 mmol/L (135-145); Total Protein 8.3 g/dL (6.5-8.0)
[2023-11-11 07:18] LABS: Troponin-I High Sensitivity < 2.7 ng/L (<3.5-35.0)
--- NOTE | 2023-11-11 08:44 | ED.CHESTPAIN ---
HPI - Chest Pain General Chief Complaint: Chest Pain Stated Complaint: chest pain Time Seen by Provider: 11/11/23 07:34 Source: patient Mode of arrival: ambulatory History of Present Illness HPI narrative: 38-year-old male with history of anxiety presents with substernal chest pressure and squeezing that he states started while he was descending the stairs of his home and reports to me that it radiated into his back but in the triage note denied radiation, there were no associated symptoms of dizziness/shortness of breath/positive family history of early cardiac disease/personal history of cardiac issues. Patient does endorse some mild nausea. Related Data Home Medications ?Medication ?Instructions ?Recorded ?Confirmed fluoxetine 10 mg capsule 10 mg PO DAILY 08/10/22 08/10/22 Allergies Allergy/AdvReac Type Severity Reaction Status Date / Time metoclopramide [From Reglan] AdvReac Palpitation Verified 11/11/23 06:54 s Review of Systems Review of Systems: Pertinent positives and negatives as stated in HPI PMFSH Past Medical History Source: nursing notes reviewed Medical History Pain in left testicle H. pylori infection Asthma Anxiety Social History Social History Alcohol intake: never Patient Tobacco Use Status: Never used Tobacco Smoked in Last 30 Days: No Use of substances other than those prescribed or required for medical reasons: No Advance Directives: No Advance Directives Information Provided: Yes Do you have a plan to hurt others: No Plan Physical Exam Vital Signs: Vital Signs: Last Vital Signs Temp 97.8 F 11/11/23 06:53 Pulse 83 11/11/23 08:49 Resp 13 11/11/23 08:49 BP 140/93 H 11/11/23 08:49 Pulse Ox 99 11/11/23 08:49 O2 Del Method Room Air 11/11/23 08:49 BMI result Body Mass Index 31.3 VITAL SIGNS: Reviewed. GENERAL: Well developed, well nourished, in no acute distress. HEAD: Normocephalic/atraumatic EYES: PERRLA, EOMI EARS: Ext canals without abnormality NOSE: Nares patent bilateral OROPHARYNX: no oral lesions noted, posterior pharynx clear NECK: Supple, no adenopathy LUNGS: Normal breath sounds. No adventitious sounds or accessory muscle use. SpO2<98> CARDIOVASCULAR: Regular rate and rhythm without noted murmurs ABDOMEN: Soft, non-tender, non-distended with bowel sounds. MUSCULOSKELETAL: No tenderness, deformities, or effusions noted on gross inspection. EXTREMITIES: No cyanosis, clubbing or edema. SKIN: Inspection of the skin reveals no rashes NEUROLOGIC: Alert and oriented x 4. Strength and sensation to light touch were grossly intact x 4. Medications Administered Discontinued Medications Generic Name Dose Route Start Last Admin Trade Name Freq PRN Reason Stop Dose Admin Al Hydroxide/Mg Hydroxide 30 ml 11/11/23 08:56 11/11/23 09:14 Magnesium Hydrox/Alum Hydrox 30 Ml Oral.Susp PO 11/11/23 08:57 30 ml ONCE ONE Administration Lidocaine HCl 10 ml 11/11/23 08:56 11/11/23 09:14 Lidocaine Hcl Viscous 2 % 15 Ml Solution MUCOUS MEM 11/11/23 08:57 10 ml ONCE ONE Administration Medical Decision Making Medical Decision Making [facility] Narrative: 38-year-old male with history and clinical presentation, DDX: Gastritis/acid reflux/pancreatitis I reviewed all investigations and hematologic indices are grossly within normal limits without any noted derangements. Chemistry indices are not significant for PHIL/electrolyte derangements, there is trace elevation of transaminases, patient does not have fever/nausea/vomiting to suggest gallbladder pathology and Velez's is negative. Patient was provided with GI cocktail and serial troponins are undetectable without acute changes on EKG. My interpretation is that patient likely has a component of gastritis/acid reflux and is discharged home with follow-up with his primary care doctor. Differential Diagnosis Differential Diagnoses: The differential diagnosis associated with the presentation includes Please see the discussion above Admission/Observation Consideration of admission/observation: Escalation of care including admission/observation considered Please see the discussion above Lab Data [facility] Lab Attestation statement: I reviewed the patient's lab results. Please see the discussion above 11/11/23 06:47 11/11/23 06:47 Labs: Lab Results 11/11/23 11/11/23 Range/Units 06:47 09:39 WBC 7.7 (4.8-10.8) X10*3/uL RBC 5.11 (4.60-5.80) X10*6/uL Hgb 15.6 (14.0-18.0) g/dl Hct 45.4 (42.0-52.0) % MCV 88.8 (80.0-98.0) fL MCH 30.5 (27.0-33.0) pg MCHC 34.4 (31.0-36.0) g/dl RDW 12.7 (11.0-16.0) % Plt Count 205 (160-400) X10*3/uL MPV 10.9 (9.4-12.4) fL Immature Gran % (Auto) 0.3 (0.0-0.4) % Neut % (Auto) 47.5 (45-73) % Lymph % (Auto) 39.5 (20-40) % [place] % (Auto) 10.5 (2-11) % Eos % (Auto) 1.7 (0-4) % Baso % (Auto) 0.5 (0-2) % Lymph # (Auto) 3.0 (1.2-4.9) X10*3/uL [place] # (Auto) 0.8 (0.1-1.2) X10*3/uL Eos # (Auto) 0.1 (0.0-0.4) X10*3/uL Baso # (Auto) 0.0 (0.0-0.2) X10*3/uL Abs Immat Gran (auto) 0.02 (0.00-0.03) X10*3/uL Absolute Neuts (auto) 3.7 (2.0-8.3) x10*3/uL Absolute Nucleated RBC 0.000 (0.0-0.012) X10*3/uL Nucleated RBC % (auto) 0.0 (0.0-0.2) /100WBC Sodium 140 (135-145) mmol/L Potassium 4.5 (3.3-5.1) mmol/L Chloride 105 (96-108) mmol/L Carbon Dioxide 24 (22-29) mmol/L Anion Gap 16 (12-20) BUN 17 H (9-16) mg/dL Creatinine 1.12 (0.5-1.4) mg/dL Estim Creat Clear Calc 95.1 Estimated GFR > 60 Random Glucose 111 (60-115) mg/dL Calcium 10.2 D (8.4-10.2) mg/dL Total Bilirubin 0.7 (0.0-1.0) mg/dL AST 57 H (5-37) U/L ALT 52 H (0-40) U/L Alkaline Phosphatase 46 (39-117) U/L Troponin I High Sens < 2.7 2.9 (<3.5-35.0) ng/L Total Protein 8.3 H (6.5-8.0) g/dL Albumin 4.7 (3.5-5.0) g/dL Independent Interpretation I performed an independent interpretation of an: EKG Interpretation: Normal sinus rhythm, HR-80, no STEMI, NM/QRS/QTC is within normal limits. External Record Review External record reviewed: Outpatient record and Prior outpatient labs Critical Care Time Critical Care Time Critical Care Time: Yes Total Critical Care Time: 30 Attestation: I personally attest to this time spent taking care of the patient. Discharge Plan Discharge Clinical Impression: Atypical chest pain, Acid reflux Patient Disposition: Home, Self-Care Instructions: Diet for Stomach Ulcers and Gastritis (ED), Indigestion (ED) Additional Instructions: 1. Recommend starting [id number] acid control medications such as Pepcid or Zantac. 2. Please follow-up with your primary care doctor in the next 3-4 days. Return to the ER for any worsening symptoms. Prescriptions: No Action fluoxetine 10 mg capsule 10 mg PO DAILY Referrals: Michael Cazares MD [Primary Care Provider] - Stand Alone Forms: Work/School Release Print Language: Spanish
[2023-11-11 08:49] VITALS: BP 140/93; PULSE 83; RESP 13; O2SAT 99
[2023-11-11] MEDS: Lidocaine HCl Viscous 2 % 15 ML SOLUTION 10 ML MUCOUS MEM (09:14)
[2023-11-11] MEDS: Magnesium Hydrox/Alum Hydrox 30 ML ORAL.SUSP PO (09:14)
[2023-11-11 10:27] LABS: Troponin-I High Sensitivity 2.9 ng/L (<3.5-35.0)
[2023-11-11 11:20] VITALS: BP 140/93; PULSE 83; RESP 13; TEMP 36.6; O2SAT 99
== END 2023-11-11 11:29 | disposition home or self-care (01) ==
PROVIDERS: Emergency Provider Student in an Organized Health Care Education/Training Program; PCP Internal Medicine
DX: R07.89 Other chest pain (principal); K21.9 Gastro-esophageal reflux disease without esophagitis; R11.0 Nausea; Z79.899 Other long term (current) drug therapy
CPT/HCPCS: 36415; 80053; 84484; 85025; 93005; 99283; 99285

== ENCOUNTER → 2023-11-11 06:39 | Outpatient (BNV) | payer OTHER, SELFPAY | PROVIDERS: Emergency Provider Student in an Organized Health Care Education/Training Program; PCP Internal Medicine; Visit Provider Internal Medicine Cardiovascular Disease | DX: I49.9 Cardiac arrhythmia, unspecified (principal) | CPT/HCPCS: 93010 ==

== ENCOUNTER 2024-03-04 09:59 | Emergency (ER) | payer OTHER, SELFPAY ==
--- NOTE | ~2024-03-04 | CT_ITS ---
EXAMINATION: CT CERVICAL SPINE WITHOUT CONTRAST CLINICAL INFORMATION: Neck pain COMPARISON: None available. TECHNIQUE: Thin section axial images with sagittal and coronal reformats. This CT examination was performed using dose optimization techniques as appropriate, variously including the following: *Automated exposure control *Adjustment of mA and/or kV according to patient size (this includes techniques or standardized protocols for targeted exams where dose is matched to indication/reason for exam; i.e. extremities or head) *Use of iterative reconstruction technique DLP: 503 mGy-cm FINDINGS: Alignment normal. There is [id number] disc space narrowing observed at C5-6 with anterior and posterior spurring and mild posterior spurring at the C6-7 level. No fracture or destructive process. No evidence for encroachment on the spinal cord. The prevertebral soft tissues are normal. CT/CT cervical spine wo IV con IMPRESSION: Degenerative changes noted particularly at the C5-6 level. No acute findings. Fleischner guidelines were followed. Electronically signed by: Gerardo Sebastian MD 03/04/2024 01:27 PM EDT
[2024-03-04 10:01] VITALS: BP 139/93; PULSE 95; RESP 20; TEMP 37.2; O2SAT 96; BMI 31.3
[2024-03-04] MEDS: Lidocaine 4 % Patch ADH..PATCH 1 PATCH TRANSDERMA (11:55)
[2024-03-04] MEDS: Acetaminophen 325 MG TABLET 975 MG PO (11:58)
--- NOTE | 2024-03-04 13:40 | ED_ITS ---
HPI - General Adult General Chief complaint: Neck Pain/Injury Stated complaint: Work injury Time Seen by Provider: 03/04/24 10:21 Source: patient and RN notes reviewed Mode of arrival: ambulatory Limitations: no limitations History of Present Illness ED Provider: Earnestine Roque PA-C HPI narrative: This is a 38-year-old male, with no known medical problems, who presents emergency department with complaints of right neck and shoulder pain. 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 Denies taking any medications prior to his arrival. He denies any severe headache, dizziness, blurred vision, chest pain, shortness of breath. Denies history of similar symptoms in the past. No numbness, tingling or weakness. No other complaints or concerns at this time. MD complaint: Right neck, shoulder pain Onset (ago): hour(s) Relieving factors: none Exacerbating factors: none Associated symptoms: denies other symptoms Treatments prior to arrival: none Related Data Home Medications ?Medication ?Instructions ?Recorded ?Confirmed fluoxetine 10 mg capsule 10 mg PO DAILY 08/10/22 08/10/22 Previous Rx's ?Medication ?Instructions ?Recorded acetaminophen 650 mg 650 mg PO Q8H PRN pain #30 tabs 03/04/24 tablet,extended release (Tylenol 8 Hour) cyclobenzaprine 10 mg tablet 10 mg PO TID PRN muscle spasm #14 03/04/24 tabs ibuprofen 600 mg tablet 600 mg PO Q6H PRN pain #30 tabs 03/04/24 Allergies Allergy/AdvReac Type Severity Reaction Status Date / Time metoclopramide [From Reglan] AdvReac Palpitation Verified 03/04/24 10:03 s Review of Systems Review of Systems: Yes all other systems are reviewed and are negative Constitutional: Constitutional: Reports as per [facility] Past Medical History Attestation statement: The following information was validated with the patient. Medical History Pain in left testicle H. pylori infection Asthma Anxiety Social History Social History Alcohol intake: never Patient Tobacco Use Status: Never used Tobacco Advance Directives: No Advance Directives Information Provided: Yes Do you have a plan to hurt others: No Plan Physical Exam ED Vital Signs: Vital Signs - 24 hr 03/04/24 10:01 03/04/24 13:52 Temperature 98.9 F 98.9 F Pulse Rate 95 95 Respiratory Rate 20 20 Blood Pressure 139/93 H 139/93 H Pulse Oximetry 96 96 Oxygen Delivery Method Room Air Room Air BMI result Body Mass Index 31.3 Const General: cooperative, comfortable and no acute distress Orientation/consciousness: patient oriented x3 Limitations: no limitations HENMT Head: Yes normal to inspection, Yes normocephalic and Yes atraumatic Ears: hearing grossly normal bilaterally General nose exam: Normal external nose present Face and sinus: Yes normal facial exam Mouth: Normal oral and palatal mucosa present, oropharynx normal and moist mucous membranes Throat: Yes posterior oropharynx normal Eyes General: appearance normal, both eyes and all related structures Eyelids: Yes eyelids normal Conjunctivae: conjunctivae normal Sclerae: sclerae normal Pupils: Equal, round and reactive pupils present EOM: EOMs intact bilaterally Neck Other: Tenderness palpation along the right trapezius muscle, extending into the right shoulder, no tenderness palpation along the right shoulder. No overlying skin changes or warmth. Mild tenderness palpation along the cervical paraspinous muscles, no midline spine tenderness. Neck: Yes normal visual inspection, Yes full ROM and Yes no lymphadenopathy Lymphatic: no lymphadenopathy noted Chest Chest palpation & inspection: normal inspection of the chest Resp Effort & Inspection: normal respiratory effort and able to speak in complete sentences Auscultation: clear to auscultation bilaterally, no crackles, no rales, no rhonchi and no wheezes Cardio Rate: regular rate Rhythm: regular rhythm Heart sounds: S1 normal heart sound present and S2 normal heart sound present GI Inspection: Yes normal to inspection Skin General skin exam: no rashes or lesions noted Trauma: no lacerations or abrasions Wounds: no wounds Neuro General: patient oriented x3 and moves all extremities Cranial nerves: Yes Equal, round and reactive pupils present Extrem General: Yes normal to inspection Right upper extremity: normal to inspection Left upper extremity: normal to inspection Right lower extremity: normal to inspection Left lower extremity: normal to inspection Medications Administered Discontinued Medications Generic Name Dose Route Start Last Admin Trade Name Freq PRN Reason Stop Dose Admin Acetaminophen 975 mg 03/04/24 11:50 03/04/24 11:58 Acetaminophen 325 Mg Tablet PO 03/04/24 11:51 975 mg ONCE ONE Administration Lidocaine 1 patch 03/04/24 11:51 03/04/24 11:55 Lidocaine 4 % Patch Adh..Patch TRANSDERMA 03/04/24 11:52 1 patch ONCE ONE Administration Protocol Medical Decision Making Medical Decision Making [facility] Narrative: This is a 38-year-old male who presents emergency department with complaints of right neck/shoulder pain 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 On arrival, vital signs revealing slight hypertension at 139/93, all other vital signs within normal limits. He has mild tenderness palpation along the cervical paraspinous muscles and right trapezius muscles, consistent with a muscle spasm, however given mechanism, will obtain neck CT to rule out any bony abnormalities. CT scan does not show any bony abnormalities, there are some evidence of spondylosis, discussed findings with patient. Given strict return precautions. He has good range of motion of the neck, patient discharged with muscle relaxants, ibuprofen and Tylenol. patient stable for discharge Differential Diagnosis Differential Diagnoses: The differential diagnosis associated with the presentation includes Subluxation, fracture, contusion, sprain, strain Admission/Observation Consideration of admission/observation: Escalation of care including admission/observation considered Radiology Impression Discussion of test interpretation with radiology: I have reviewed the radiologist's reading. Radiologist Impression: CT/CT cervical spine wo IV con IMPRESSION: Degenerative changes noted particularly at the C5-6 level. No acute findings. Fleischner guidelines were followed. Electronically signed by: Gerardo Sebastian MD 03/04/2024 01:27 PM EDT Dictated By: Gerardo Sebastian MD Discharge Plan Discharge Clinical Impression: Acute neck pain, Muscle spasm Patient Disposition: Home, Self-Care Instructions: Muscle Spasm (ED), Neck Pain (ED) Additional Instructions: You were seen in the emergency department due to neck pain/upper back pain. Your CT scan of your neck shows spondylosis, otherwise no fractures. Your likely experiencing a muscle spasm, please rest, ice for the 1st 24-48 hours, and you can switch to heat. Alternate between ibuprofen and Tylenol as needed for pain. Take Flexeril, muscle relaxants as prescribed, please be advised that this can cause drowsiness, do not drink alcohol or drive while taking this medication. If any new or worsening symptoms occur including but not limited to fevers, chills, chest pain, shortness of breath, please return for re-evaluation. Prescriptions: New ibuprofen 600 mg tablet 600 mg PO Q6H PRN (Reason: pain) Qty: 30 0RF acetaminophen [Tylenol 8 Hour] 650 mg tablet extended release 650 mg PO Q8H PRN (Reason: pain) Qty: 30 0RF cyclobenzaprine 10 mg tablet 10 mg PO TID PRN (Reason: muscle spasm) Qty: 14 0RF No Action fluoxetine 10 mg capsule 10 mg PO DAILY Stand Alone Forms: Work/School Release Interventions: ED Discharge Assessment Last Done: 03/04/24 13:52 Discharge Date/Time: 03/04/24 13:53 Print Language: Indonesian
[2024-03-04 13:52] VITALS: BP 139/93; PULSE 95; RESP 20; TEMP 37.2; O2SAT 96
== END 2024-03-04 13:53 | disposition home or self-care (01) ==
PROVIDERS: Emergency Provider Emergency Medicine; PCP Internal Medicine
DX: S19.9XXA Unspecified injury of neck, initial encounter (principal); M54.2 Cervicalgia; M62.838 Other muscle spasm; X50.9XXA Other and unspecified overexertion or strenuous movements or postures, initial encounter; X50.3XXA Overexertion from repetitive movements, initial encounter; X50.0XXA Overexertion from strenuous movement or load, initial encounter; Y93.89 Activity, other specified; Y92.89 Other specified places as the place of occurrence of the external cause; Y99.0 Civilian activity done for income or pay
CPT/HCPCS: 72125; 99283; 99284

== ENCOUNTER 2024-05-08 19:38 | Emergency (ER) | payer OTHER, SELFPAY ==
--- NOTE | ~2024-05-08 | XR_ITS ---
EXAMINATION: XR KNEE, RIGHT CLINICAL INFORMATION: Pain COMPARISON: None available. TECHNIQUE: AP, lateral, and both oblique views of the right knee. FINDINGS: No fracture or joint effusion. Alignment is anatomic. Joint spaces are maintained. No abnormal soft tissue calcification. XR/XR knee RT 4V IMPRESSION: Normal right knee radiographs. Electronically signed by: Rodolfo Young MD 05/08/2024 11:02 PM STEVE
[2024-05-08 19:58] VITALS: BP 129/79; PULSE 105; RESP 18; TEMP 36.7; O2SAT 97; BMI 30.4
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
[2024-05-08 22:37] VITALS: BP 122/72; PULSE 68; RESP 15; TEMP 36.7; O2SAT 98
[2024-05-08 22:38] VITALS: BP 122/72; PULSE 68; RESP 15; TEMP 36.7; O2SAT 98
== END 2024-05-08 22:39 | disposition home or self-care (01) ==
PROVIDERS: Emergency Provider Internal Medicine; PCP Internal Medicine
DX: S80.02XA Contusion of left knee, initial encounter (principal); S80.01XA Contusion of right knee, initial encounter; X58.XXXA Exposure to other specified factors, initial encounter; Y93.89 Activity, other specified; Y92.89 Other specified places as the place of occurrence of the external cause; Y99.0 Civilian activity done for income or pay
CPT/HCPCS: 73564; 99283

== ENCOUNTER 2024-12-16 13:17 | Emergency (ER) | payer OTHER, SELFPAY ==
--- NOTE | ~2024-12-16 | XR_ITS ---
EXAMINATION: XR KNEE, RIGHT CLINICAL INFORMATION: pain COMPARISON: None available. TECHNIQUE: Four views of the right knee. FINDINGS: A small mild joint fluid is present. There is mild narrowing of the medial joint space. No other abnormalities are evident. XR/XR knee RT 4V IMPRESSION: Borderline joint effusion. Nonspecific mild joint space narrowing in the medial compartment. Electronically signed by: Ankur Kingsley MD 12/16/2024 01:35 PM EDT
[2024-12-16 13:20] VITALS: BP 136/92; PULSE 90; RESP 16; TEMP 36.4; O2SAT 98; BMI 29.7
--- NOTE | 2024-12-16 13:21 | ED_ITS ---
HPI - General Adult General Chief complaint: Extremity Injury, Lower Stated complaint: r knee inj Time Seen by Provider: 12/16/24 13:50 Source: patient Mode of arrival: ambulatory Limitations: no limitations History of Present Illness ED Provider: Shell Jones PA-C HPI narrative: Patient is a 39 year old assigned male at with a history of previous knee injury presenting to the emergency department today with right knee pain. Patient states that he was playing basketball when he came down on his right knee and felt / heard a crunch and has had pain ever since. Patient denies any dizziness, lightheadedness, abdominal pain, nausea, vomiting, fever, chills, blurry vision, double vision, loss of vision, chest pain, difficulty breathing, shortness of breath, back pain, night sweats, pain with urination, increased urinary frequency, increased urinary urgency, blood in his urine or stool, syncope or a near syncopal episode, bowel incontinence, bladder incontinence, or any other complaints at this time. Location: right (knee) Relieving factors: immobilization Exacerbating factors: movement Associated symptoms: denies other symptoms Treatments prior to arrival: none Related Data Home Medications ?Medication ?Instructions ?Recorded ?Confirmed fluoxetine 10 mg capsule 10 mg PO DAILY 08/10/22 08/10/22 Previous Rx's ?Medication ?Instructions ?Recorded acetaminophen 650 mg 650 mg PO Q8H PRN pain #30 tabs 03/04/24 tablet,extended release (Tylenol 8 Hour) cyclobenzaprine 10 mg tablet 10 mg PO TID PRN muscle spasm #14 03/04/24 tabs ibuprofen 600 mg tablet 600 mg PO Q6H PRN pain #30 tabs 03/04/24 Allergies Allergy/AdvReac Type Severity Reaction Status Date / Time metoclopramide [From Reglan] AdvReac Palpitation Verified 12/16/24 13:22 s Review of Systems Constitutional: Constitutional: Reports no additional constitutional complaints, Denies chills, Denies fever(s) and Denies night sweats Eyes: Eyes: Reports no additional eye complaints, Denies blurry vision, Denies change in vision, Denies diplopia, Denies eye discharge, Denies loss of vision and Denies eye pain ENT: Denies dizziness Cardiovascular: Cardiovascular: Reports no additional cardiovascular complaints, Denies chest pain, Denies lightheadedness, Denies Loss of Consciousness and Denies dyspnea Respiratory: Respiratory: Reports no additional respiratory complaints and Denies dyspnea Gastrointestinal: Gastrointestinal: Reports no additional gastrointestinal complaints, Denies abdominal pain, Denies melena, Denies hematochezia, Denies change in bowel habits and Denies change in stool character Genitourinary: Genitourinary: Reports no additional male genitourinary complaints, Denies hematuria, Denies oliguria, Denies difficulty urinating, Denies dysuria, Denies urinary frequency, Denies urinary hesitancy, Denies urinary incontinence and Denies urinary urgency Musculoskeletal: Musculoskeletal: Reports no additional musculoskeletal complaints, Denies numbness and Denies tingling Comments: Right knee pain Neurologic: Denies dizziness, Denies loss of vision, Denies numbness and Denies tingling Psychiatric: Psychiatric: Reports no additional psychiatric complaints Endocrine: Endocrine: Reports no additional endocrine complaints Hematologic/Lymphatic: Hematologic/Lymphatic: Reports no additional hematologic/lymphatic complaints Allergic/Immunologic: Allergic/Immunologic: Reports no additional allergic/immunologic complaints PMFSH Past Medical History Attestation statement: The following information was validated with the patient. Source: old records reviewed and nursing notes reviewed Medical History Pain in left testicle H. pylori infection Asthma Anxiety Social History Social History Alcohol intake: never Patient Tobacco Use Status: Never used Tobacco Physical Exam ED Vital Signs: Vital Signs - 24 hr 12/16/24 13:20 Temperature 97.6 F Pulse Rate 90 Respiratory Rate 16 Blood Pressure 136/92 H Pulse Oximetry 98 Oxygen Delivery Method Room Air BMI result Body Mass Index 29.7 Const General: cooperative, no acute distress, alert and awake Nutritional Appearance: well nourished Orientation/consciousness: patient oriented x3 HENMT Head: Yes normal to inspection and Yes atraumatic Ears: hearing grossly normal bilaterally and external ears normal General nose exam: Normal external nose present, no nasal discharge noted and no epistaxis Face and sinus: Yes normal facial exam, No abrasion and No laceration Mouth: Normal oral and palatal mucosa present, no drooling and no muffled voice Eyes General: appearance normal, both eyes and all related structures Periorbital: periorbital findings normal Eyelids: Yes eyelids normal Conjunctivae: conjunctivae normal Pupils: Equal, round and reactive pupils present EOM: EOMs intact bilaterally Neck Neck: Yes normal visual inspection, Yes full ROM and Yes no lymphadenopathy Resp Effort & Inspection: normal respiratory effort and able to speak in complete sentences Neuro General: patient oriented x3, moves all extremities and CN's II-XI intact bilaterally Cranial nerves: Yes Equal, round and reactive pupils present Cognition (Neuro): normal cognition Extrem Other: Patient's right knee in OTC brace All special knee tests negative General: Yes full ROM and Yes capillary refill normal Psych Appearance: grossly normal Mental Status: mental status grossly normal Affect: normal affect Attitude: cooperative Thought process: Normal thought process present Thought content: Normal thought content present Insight: Good insight present (Psych) Course Course Course Narrative: RME, this is a rapid medical exam performed by Louis Conteh please refer to primary provider for complete H&P- 39 year old male presents for evaluation of right knee pain. He jumped up while playing basketball last night and landed awkwardly on his right knee. He felt a pop and has increased pain today. Plan for x-ray Medical Decision Making Medical Decision Making MDM Narrative: Patient is a 39 year old assigned male at with a history of previous knee injury presenting to the emergency department today with right knee pain. Patient's physical exam was unremarkable. Patient's right knee x-ray showed no acute process. I explained my physical exam findings as well as all test results to the patient. I answered all questions asked by the patient. I stressed the importance of the patient taking his medication as directed (either prescribed or as the over the counter packaging recommends). I stressed the importance of the patient following up with his primary care provider and an orthopedic provider. I stressed the importance of the patient returning to the emergency department immediately if his symptoms were to worsen or if he were to develop any dizziness, shortness of breath, difficulty breathing, chest pain, blurry vision, loss of vision, nausea, vomiting, abdominal pain, fever, chills, back pain, or any other complaints. Patient verbalized agreement and understanding with this treatment plan and discharge. Differential Diagnosis Differential Diagnoses: The differential diagnosis associated with the presentation includes Knee sprain Knee strain Knee pain Admission/Observation Consideration of admission/observation: Escalation of care including admission/observation considered Patient would have been admitted to the hospital had his work up had any findings where hospital admission was appropriate and his clinical presentation warranted hospital admission. Independent Interpretation I performed an independent interpretation of an: Plain X-Ray (Right knee) Interpretation: My interpretation is in agreement with the radiologist's impression of this imaging study. EXAMINATION: XR KNEE, RIGHT CLINICAL INFORMATION: pain COMPARISON: None available. TECHNIQUE: Four views of the right knee. FINDINGS: A small mild joint fluid is present. There is mild narrowing of the medial joint space. No other abnormalities are evident. XR/XR knee RT 4V IMPRESSION: Borderline joint effusion. Nonspecific mild joint space narrowing in the medial compartment. Electronically signed by: Ankur Kingsley MD 12/16/2024 01:35 PM EDT RP Dictated By: Ankur Kingsley MD Signed By: Electronically signed by Ankur Kingsley MD 12/16/24 1335 Radiology Impression Discussion of test interpretation with radiology: I have reviewed the radiologist's reading. Discharge Plan Discharge Clinical Impression: Knee sprain Patient Disposition: Home, Self-Care Instructions: Knee Sprain (DC) Additional Instructions: Follow up with your primary care provider and an orthopedic provider. Return to the emergency department immediately if your symptoms worsen or if you develop any numbness, tingling, dizziness, shortness of breath, difficulty breathing, chest pain, blurry vision, loss of vision, nausea, vomiting, abdominal pain, fever, chills, back pain, or any other complaints. Please see the information below about our Patient Portal. If you are not yet enrolled in the [facility] Patient Portal, you will receive an enrollment email invitation following your visit to any [facility] care setting. You may also self-enroll in the Patient Portal by visiting our website: [email or web address] The following information is required to access the Patient Portal: - Your [facility] Medical Record Number - Your personal home email address (must match what is in your electronic medical record, Registration staff can assist with this) - Name - Date of Capabilities of the Patient Portal: - Message some providers - View upcoming appointments - Access your health summary, medical history, and visit history - View current conditions and allergies - View procedure and lab results - View your medications, including guidelines, side effects, and precautions - Complete pre-appointment questionnaires requested by your provider - Ready summary reports of your office visits and procedures To access the Patient Portal Mobile Can, follow these directions: - Search [employer] in the Can Store or [employer] Store - Download the Can - Search for [facility] - Enter your login/password Prescriptions: No Action ibuprofen 600 mg tablet 600 mg PO Q6H PRN (Reason: pain) Qty: 30 0RF acetaminophen [Tylenol 8 Hour] 650 mg tablet extended release 650 mg PO Q8H PRN (Reason: pain) Qty: 30 0RF cyclobenzaprine 10 mg tablet 10 mg PO TID PRN (Reason: muscle spasm) Qty: 14 0RF fluoxetine 10 mg capsule 10 mg PO DAILY Referrals: [facility] Orthopedic Surgeons [Provider Group] (Call to establish and follow up with an orthopedic provider.) Michael Cazares MD [Primary Care Provider] - Stand Alone Forms: Work/School Release Interventions: ED Discharge Assessment Last Done: 12/16/24 14:02 Print Language: Surinamese
[2024-12-16 14:02] VITALS: BP 136/92; PULSE 90; RESP 16; TEMP 36.4; O2SAT 98
--- OUTSIDE RECORDS SUMMARY | 2024-12-16 16:13 | XMS_ITS | Clinical Summary ---
Author Organization Patient Business Ser 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 270 tablet 1 4 Active acetaminophen (TYLENOL 8 HOUR) 650 mg 8 hr tablet Take 1 Tablet by mouth every 8 hours as needed. 4 Active celecoxib (CeleBREX) 100 mg capsule Take 1 Capsule by mouth 2 times daily as needed for Pain. 4 Active fluticasone propionate (FLONASE) 50 mcg/actuation nasal spray 2 Sprays by Nasal route daily. 4 Active ibuprofen (ADVIL,MOTRIN) 600 mg tablet Take 1 Tablet by mouth every 6 hours as needed. 4 Active buPROPion XL (WELLBUTRIN XL) 150 mg 24 hr tablet TAKE 1 TABLET BY MOUTH EVERY DAY IN THE MORNING 90 tablet 5 Active buPROPion XL (WELLBUTRIN XL) 150 mg 24 hr tablet TAKE 1 TABLET BY MOUTH EVERY DAY IN THE MORNING 90 tablet 1 4 11/28/19 25 Discontinued Active Problems Problem Noted Date Diagnosed Date Abdominal bloating 05/27/2024 Abdominal discomfort 05/27/2024 Change in bowel habits 05/27/2024 Early satiety 05/27/2024 GERD (gastroesophageal reflux disease) Helicobacter positive gastritis 05/27/2024 Hiatal hernia 05/27/2024 Umbilical hernia 05/27/2024 Osteoarthritis of left knee 02/21/2024 Snoring 01/31/2021 Overview (05/27/2024): 12/2020 Home Sleep Study did not reveal sleep apnea or nocturnal hypoxia. COVID-19 virus infection 10/28/2020 Overview (05/27/2024): 10/27/2020 Anxiety and depression 02/06/2019 Elevated LFTs 02/05/2019 Hepatic cyst 02/03/2019 Overview (05/27/2024): Exophtyic Hypertension 02/03/2019 Palpitations 02/03/2019 Eczema 07/30/2008 Immunizations Name Administration Dates Next Due COVID-19 Seasonal (Novavax) 12yo and older 04/13,03/23/2022 Hep B, Unspecified 08/13/2017 Influenza Quadravalent, MDCK , 0.5ml, preservative free (Flucelvax) 6mo and older 04/30/2018 Influenza trivalent, 0.5mL, preservative free (Fluarix; FluLaval; Fluzone) ages 6mo and older (Afluria) 3 years and older 05/02/2010,04/21/2008,04/13/2007 Measles 08/13/2017 Mumps 08/13/2017 Rubella 08/13/2017 Td Tetanus diptheria (Tdvax) 7yo and older 02/06 Tdap Tetanus diptheria acell ular pertussis (Boostrix; Adacel) 7yo and older 08/17/2017,07/06/2008 Varicella live (Varivax) 12mo and older 08/16/19 18 Surgical History Surgery Date Site/Laterality Comments KNEE SURGERY 2007 PROCEDURE: HISTORICAL KNEE SURGERY; COMMENT: left knee x 3 OTHER SURGICAL HISTORY PROCEDURE: (UGI) CONTRAST X-RAY OF UPPER GI TRACT COLONOSCOPY PROCEDURE: HISTORICAL COLONOSCOPY COLONOSCOPY PROCEDURE: HISTORICAL COLONOSCOPY; COMMENT: Performed in July 2021 Medical History Medical History Date Comments Eczema 07/30/2008 DX:Eczema Heartburn 02/03/2019 DX:Heartburn Hepatic cyst 02/03/2019 DX:Hepatic cyst; COMMENT: Exophtyic History of rhabdomyolysis 02/03/2019 DX:His tory of rhabdomyolysis Hypertension 02/03/2019 DX:Hypertension Palpitations 02/03/2019 DX:Palpitations Epigastric pain DX:Epigastric pa in Abdominal cramping DX:Abdominal cramping GERD (gastroesophageal reflu x disease) DX:GERD (gastroesophageal re flux disease) Hiatal hernia DX:Hiatal hernia Helicobacter positive gastritis DX:Helicobacter positive gastritis Early satiety DX:Early satiety COVID-19 virus infection 10/28/2020 DX:COVI D-19 virus infection; COMMENT: 10/27/2020 Change in bowel habits DX:Change in bowel habits Abdominal bloating DX:Abdominal bloating Abdominal discomfort DX:Abdomina l discomfort Anxiety state DX:Anxiety state Depressive disorder DX:Depressiv e disorder Irritable bowel syndrome DX:Irri table bowel syndrome Umbilical hernia DX:Umbilical he rnia Anxiety and depression DX:Anxiet y and depression Osteoarthritis of left knee 02/21/2024 DX:O steoarthritis of left knee Family History Medical History Relation Name Comments Pancreatic cancer Aunt Asthma Father Hypertesnion Hypertension Mother Asthma, Anxiety , TIA Relation Name Status Comments Aunt Alive Father Alive htn, depression Mother Alive htn, TIA Social History Tobacco Use Types Packs/Day Years Used Date Smoking Tobacco: Never Smokeless Tobacco: Never Alcohol Use Standard Drinks/Week Comments Yes 0 (1 standard drink = 0.6 oz pur e alcohol) Sex and Gender Information Value Date Recorded Sex Assigned at Not on file Legal Sex Male 4:16 PM EDT Gender Identity Not on file Sexual Orientation Not on file Obstetrics History Last Filed Vital Signs Vital Sign Reading Time Taken Comments Blood Pressure 138/93 08/21/2024 1:28 PM EST provider will rechk Pulse 62 08/21/2024 1:28 PM EST Temperature 35.8 ??C (96.5 ??F) 08/21/2024 1 :28 PM EST Respiratory Rate 16 08/21/2024 1:28 PM EST Oxygen Saturation 98% 08/21/2024 1:2 8 PM EST Inhaled Oxygen Concentration - - Weight 93 kg (205 lb) 08/21/2024 1:28 PM EST Height 170.2 cm (5' 7 ) 08/21/2024 1:28 PM EST Body Mass Index 32.11 08/21/2024 1:28 PM EST Plan of Treatment Health Maintenance Due Date Last Done Comments Pneumococcal Vaccine: Pediatrics (0 to 5 Years) and At-Risk Patients (6 to 64 Years) (1 of 2 - PCV) 10/22/2003 Hepatitis B Vaccines (2 of 3 - 19+ 3-dose series) 09/10/2017 08/13/2017 Social Influencers of Health Screening 01/12/2020 COVID-19 Vaccine ( - season) 2024 04/13/2022, 03/23/2022 Depression Screening 02/20/2025 02/21/2024 Hypertension/CHF/CAD Annual BMP Blood Test 02/20/2025 02/21/2024, 02/21/2024 Influenza Vaccine (Season Ended) 2025 04/30/2018, 05/02/2010, 04/21/2008, Additional history exists DTaP,Tdap,and Td Vaccines (5 - Td or Tdap) 08/17/2027 08/17/2017, 02/06/2014, 08/17/2011, Additional history exists Cholesterol Screening (Lipid Panel) 01/13/2028 01/12/2023 Varicella Vaccines Aged Out 08/16/2017 No longer eligible based on patient's age to complete this topic HIV Screening Completed 08/21/2024, 01/12/2023 Hepatitis C Screening Completed 08/21/2024, 023 HIB Vaccines Aged Out No longer eligi ble based on patient's age to complete this topic HPV Vaccines Aged Out No longer eligi ble based on patient's age to complete this topic Hepatitis A Vaccines Aged Out No long er eligible based on patient's age to complete this topic IPV Vaccines Aged Out No longer eligi ble based on patient's age to complete this topic MMR Vaccines Aged Out No longer eligi ble based on patient's age to complete this topic Meningococcal ACWY Vaccine Aged Out N o longer eligible based on patient's age to complete this topic Meningococcal B Vaccine Aged Out No l onger eligible based on patient's age to complete this topic RSV Immunization Patients Under 20 months Aged Out No longer eligible based on patient's age to complete this topic Procedures Procedure Name Priority Date/Time Associated Diagnosis Comments HEPATITIS PANEL, ACUTE WITH REFLEX TO CONFIRMATION Routine 08/21/2024 2:24 PM EST Dysuria Screen for STD (sexually transmitted disease) HIV 1, 2 ANTIBODY, P24 ANTIGEN WITH REFLEX TO DIFFERENTIATION Routine 08/21/2024 2:24 PM EST Dysuria Screen for STD (sexually transmitted disease) DEPRESSION SCREENING Routine 02/21/2024 ANNUAL BMP BLOOD TEST Routine 02/21/2024 LIPID PANEL Routine 01/12/2023 from Last 3 Months or Most Recently Relevant to Health Maintenance Results * HIV 1,2 antibody, p24 antigen with reflex to differentiation (08/21/2024 2:24 PM EST) HIV Combo AB/AG Negative Negative LAB CHEMISTRY METHOD 08/21/2024 7:17 PM EST [facility] Blood Venous blood specimen / Unknown Venipuncture / Unknown 08/21/2024 2:24 PM EST 08/21/2024 2:24 PM EST Narrative [facility] - 08/21/2024 7:17 PM EST This assay is a 4th generation assay allowing for earlier detection of HIV infection by detecting the presence of the HIV-1 p24 antigen as well as the traditional antibodies to HIV type 1 (including group O) and type 2. ??Use of a 4th generation assay is the current CDC recommendation for HIV screening. Jennifer CHOWDHURY LAB BLOOD ORDERABLES Fin al Result [facility] [address] [place] [address], * Hepatitis panel, acute with reflex to confirmation (08/21/2024 2:24 PM EST) Hepatitis B Surface Ag Negative Negative LAB CHEMISTRY METHOD 08/21/2024 7:24 PM EST [facility] Hepatitis A Antibody IgM Negative Negative LAB CHEMISTRY METHOD 08/21/2024 7:24 PM EST [facility] Hep B Core IgM Negative Negative LAB CHEMISTRY METHOD 08/21/2024 7:24 PM EST [facility] Hepatitis C Antibody Negative Negative LAB CHEMISTRY METHOD 08/21/2024 7:24 PM EST [facility] Blood Venous blood specimen / Unknown Venipuncture / Unknown 08/21/2024 2:24 PM EST 08/21/2024 2:24 PM EST Jennifer CHOWDHURY LAB BLOOD ORDERABLES Fin al Result [facility] [address] [place] [address], * Annual BMP Blood Test (02/21/2024) Pathologist [facility] Annual BMP Blood Test abstracted Historical Provider HEALTH MAINTENANCE Final Result * Depression Screening (02/21/2024) Pathologist [facility] Depression Screening abstracted Historical Provider HEALTH MAINTENANCE Final Result * (ABNORMAL) Lipid panel (01/12/2023) [facility] LDL/HDL Ratio 3 0 - 4 Triglycerides 167(A) 0 - 150 mg/dL Cholesterol 143 0 - 200 mg/dL HDL 51 >=40 mg/dL LDL Cholesterol 59 0 - 100 mg/dL Blood Venous blood specimen / Unknown Historical Provider LAB BLOOD ORDERABLES Masha l Result from Last 3 Months or Most Recently Relevant to Health Maintenance Additional Health Concerns Infection Onset Date Last Indicated Herpes simplex 08/21/2024 08/21/2024 Insurance [employer] 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
== END 2024-12-16 14:23 | disposition home or self-care (01) ==
LOC: HO.ED 14:05
PROVIDERS: Emergency Provider Emergency Medicine; PCP Internal Medicine
DX: S83.91XA Sprain of unspecified site of right knee, initial encounter (principal); X50.1XXA Overexertion from prolonged static or awkward postures, initial encounter; Y93.67 Activity, basketball; Y92.310 Basketball court as the place of occurrence of the external cause; Y99.8 Other external cause status
CPT/HCPCS: 73564; 99283; 99284

== ENCOUNTER → 2024-12-16 13:21 | Outpatient (BNV) | payer OTHER, SELFPAY | PROVIDERS: Emergency Provider Emergency Medicine; PCP Internal Medicine; Visit Provider Radiology Diagnostic Radiology | DX: M17.11 Unilateral primary osteoarthritis, right knee (principal) | CPT/HCPCS: 73564 ==

== ENCOUNTER 2025-05-22 10:49 | Outpatient (AMB) | payer OTHER, SELFPAY ==
--- NOTE | 2025-05-22 10:52 | A.OFFVIS_ITS ---
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 It appears that the muscle twitching started after an increase of his Wellbutrin from 150 mg to 300 mg for poorly-controlled anxiety and depression. His Wellbutrin was reduced back to 150 mg daily though he continued to exhibit muscle twitching and hyperreflexia. There was no seizure activity. Because of the continued muscle twitching and hyperreflexia, the Wellbutrin was discontinued and he was started on BuSpar in efforts to prevent serotonin syndrome. He was referred to Psychiatry for further management of his moods. He was referred to Neurology for further evaluation of the muscle twitches. 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 He went to [facility] and was hospitalized there from the until the and has since had a full recovery. During his hospitalization, they started him back on Wellbutrin 300 mg due to some confusion on his med list. He took this for a few days but once he got home started taking the 150 mg dose again. He has been on 150 mg dose for a few days now. He has been off of the Wellbutrin from approximately March until May and did see a reduction in the muscle twitching but did still periodically experience muscle twitches. He describes his muscle twitches as sporadic nonpainful occurring primarily in the lower extremities but sometimes in the upper extremities. He did not have them prior to initiation of the Wellbutrin that he is aware of. He does feel that any amount of stimulus on his lower extremities at 1 point was causing his extremities to jerk. Since reducing the dose to 150 mg has not occurred but he does still experience twitching. He does feel some lower back pain and sometimes feels as though his muscle twitching radiates from his low back down his leg but denies any radiating pain. He denies any muscle weakness, other involuntary movements, staring episodes, loss of awareness, or any paresthesias. Since his cardiac arrest, he has not yet seen his primary care provider. He del castillo s have an appointment scheduled them on Sunday. 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 pylori infection Asthma Anxiety Surgical History (Updated 05/20/25 @ 09:53 by Rao Kenney CMA) H/O knee surgery Family History (Updated 05/20/25 @ 09:54 by Rao Kenney CMA) Mother Hypertension Asthma Anxiety TIA (transient ischemic attack) Father Asthma Hypertension Social History (Updated 05/20/25 @ 09:55 by Rao Kenney CMA) Alcohol intake: current Patient Tobacco Use Status: Never used Tobacco Review of Systems Const All systems reviewed & are unremarkable except as noted in HPI and below Physical Exam Vital Signs: Last Vital Signs Pulse 78 05/22/25 11:03 Resp 16 05/22/25 11:03 BP 126/90 H 05/22/25 11:03 Pulse Ox 98 05/22/25 11:03 Oxygen Delivery Method Room Air 05/22/25 11:03 BMI result Body Mass Index 31.0 Const General: cooperative, healthy appearing, comfortable and no acute distress Nutritional Appearance: well nourished Orientation/consciousness: patient oriented x3 Limitations: no limitations HEENT Head: Yes normal to inspection and Yes normocephalic Eyes General: appearance normal, both eyes and all related structures Visual Lopes: normal visual lopes by confrontation Alignment and Position: alignment normal Periorbital: periorbital findings normal Eyelids: Yes eyelids normal Conjunctivae: conjunctivae normal Sclerae: sclerae normal Direct Ophthalmoscopy: normal light reflex, no papilledema and fundi normal bilaterally Neck Neck: Yes normal visual inspection and Yes full ROM General: Yes no CVA tenderness Back/Spine/Pelvis Back: no CVA tenderness Cervical Spine: normal cervical lordosis Thoracic/Lumbar Spine: thoracic and lumbar spine normal to inspection Neuro General: patient oriented x3 and tone normal Cranial nerves: Yes CN's II-XII intact bilaterally and Yes Facial sensation intact/muscles of mastication intact Cognition (Neuro): normal cognition Gait exam (Neuro): Normal gait present Motor exam (neuro): 5/5 motor strength present throughout and no tremor noted Sensory Exam: double simultaneous stimulation for sensation normal Deep tendon reflexes (DTR's): Right triceps reflex intensity grade: 2+, Left triceps reflex intensity grade: 2+, Rt Biceps (C5, C6): 2+, Left biceps reflex intensity grade: 2+, Right brachioradialis reflex intensity grade: 2+, Left brachioradialis reflex intensity grade: 2+, Right patellar reflex intensity grade: 2+, Left patellar reflex intensity grade: 3+, Right ankle reflex intensity grade: 3+ (No ankle clonus) and Left ankle reflex intensity grade: 3+ (No ankle clonus) Plantar Reflex Responses: equivocal: bilateral Romberg Test: Negative Pupils: Normal pupillary reactivity/response: bilateral Psych Appearance: grossly normal Mental Status: mental status grossly normal Speech and movement: Normal speech and movement present and Clear speech present Affect: normal affect Attitude: cooperative Thought process: Normal thought process present Thought content: Normal thought content present Insight: Good insight present (Psych) Judgement: Good judgement present (Psych) Assessment & Plan Assessment & Plan (1) Muscle twitching: Code(s): R25.3 - Fasciculation Category: Medical Plan Chaparro is a 39-year-old male patient with a past medical history of anxiety, depression, GERD, hypertension, and osteoarthritis of the left knee who is presenting to the clinic today for an evaluation of ?muscle twitching?. His muscle twitching does seem to coincide with his use of Wellbutrin however even with discontinuation his muscle twitching occurred occasionally. His exam today was reassuring I did not reveal any weakness or fasciculations. He did not have any abnormal reflexes aside from some slight hyperreflexia predominantly to the patellar areas (no ankle clonus, no positive Babinski, no Andrzej sign). Ultimately, I would recommend avoiding the use of Wellbutrin to avoid serotonin syndrome given the direct correlation with his symptoms. I was originally going to suggest an EEG if the ultimate decision was to stay on the Wellbutrin however the patient would find it reassuring to have it done regardless. Because of his grandmother's history of epilepsy I think it is reasonable to perform an EEG. He also notes some low back pain and feels as though some of the muscle twitching is directly related to the back pain on the right side radiating down his leg. We could consider an EMG of the right lower extremity if his twitching continues. -Routine EEG -Consider RLE EMG if symptoms continue Orders: Orders EEG Routine Today R25.3 - Fasciculation Coding Level of Care Code New Pt Level 4 (15113) Diagnoses Muscle twitching R25.3
[2025-05-22 11:03] VITALS: BP 126/90; PULSE 78; RESP 16; O2SAT 98; BMI 31.0
--- OUTSIDE RECORDS SUMMARY | 2025-05-22 11:38 | XMS_ITS | Encounter Summary ---
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 Name Role Phone Michael Cazares MD Primary Care Provider [phone] Encounter Details Date Type Department Care Team ([facility] st Contact Info) Description 04/13/2025 Results Follow-Up [facility] [address] [place] [address] Michael Cazares MD [address] [place], [place] Social History Tobacco Use Types Packs/Day Years Used Date Smoking Tobacco: Never Smokeless Tobacco: Never Alcohol Use Standard Drinks/Week Comments Yes 0 (1 standard drink = 0.6 oz pur e alcohol) Housing Instability Answer Date Recorde d Are you worried that in the next 2 months you may not have stable housing? No 02/06/2025 Food Access & Nutrition Answer Date Rec orded Do you have access to a vari ety of food including fruits and vegetables? Yes 02/06/2025 Access to Healthcare Answer Date Record ed Within the last 3 months, ho w many times did you visit the emergency department for your medical care? 0 02/06/2025 Health Literacy Answer Date Recorded How often do you need to hav e someone help you when you read instructions, pamphlets, or other written material from your doctor or pharmacy? Never 02/06/2025 Caregiver: How often do you need to have someone help you when you read instructions, pamphlets, or other written material from your doctor or pharmacy? Not on file 02/06/2025 Financial Risk Answer Date Recorded How hard is it for you to pa y for the very basics like food, housing, medical care, and air conditioning / heating? Not very hard 02/06/2025 Transportation Answer Date Recorded Has the lack of transportati on kept you from meetings, work, or from getting things needed for daily living? No Has the lack of transportati on kept you from medical appointments or from getting medications? No 02/06/2025 Social Isolation Answer Date Recorded How often do you feel lonely or isolated from th ose around you? Rarely 02/06/2025 Food Risk Answer Date Recorded Within the past 12 months we worried whether our food would run out before we got money to buy more. Never true 02/06/2025 Within the past 12 months th e food we bought just didn't last and we didn't have money to get more. Never true 02/06/2025 Dependent Care Answer Date Recorded Do you need help finding or paying for care for your loved ones. For example, teacher early childhood development or elderly care for an older adult? No 02/06/2025 Education Answer Date Recorded Do you think completing more education or training, like finishing a GED, going to college, or learning a trade, would be helpful for you? N/A 02/06/2025 Employment and Income Answer Date Recor ded During the last four weeks, have you been actively looking for work? No 02/06/2025 Living Situation Answer Date Recorded What is your living situation? Unrecognized valu e 02/06/2025 Sex and Gender Information Value Date Recorded Sex Assigned at Male 01/19/2025 4:28 PM EDT Legal Sex Male 4:16 PM EDT Gender Identity Male 01/19/2025 4:28 PM EDT Sexual Orientation Not on file documented as of this encounter Plan of Treatment Upcoming Encounters Date Type Department Care Team (Late st Contact Info) Description 05/25/2025 9:30 AM EST Office Visit Adult Medicine [address] [phone] Michael Cazares MD [address] [place] [address] 08/03/2025 11:00 AM EST Office Visit Adult Medicine [address], [place] [phone] Michael Cazares MD [address] [place] [address] documented as of this encounter Visit Diagnoses Not on filedocumented in this encounter Additional Health Concerns Infection Onset Date Last Indicated Resolved Time Herpes simplex 08/21/2024 08/21/2024 Assessment Noted Time PHQ-9 Depression Total Score: 1 02/07/20 25 10:07 AM EDT documented as of this encounter 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
--- OUTSIDE RECORDS SUMMARY | 2025-05-22 11:38 | XMS_ITS | Encounter Summary ---
Author Organization [facility] Address [address] [place] [address] Care Team Providers Care Guitar Technician Name Role Phone Michael Cazares MD Primary Care Provider Reason for Visit * Reason Onset Date Comments Hospital Follow-up 05/21/2025 Encounter Details Date Type Department Care Team ([facility] Contact Info) Description 05/21/2025 Telephone Adult Medicine [address] [phone] Bridget Pope MA Social History Tobacco Use Types Packs/Day [...] care for your loved ones. For example, child guidance counselor or elderly care for an older adult? [...] on file documented as of this encounter Progress Notes * Adrián Loaiza RN - 05/21/2025 11:50 AM EST Called pt hosp fu for 05/25 with pcp * Bridget Pope MA - 05/21/2025 10:18 AM EST Hospital/ER follow up appointment needed Hospital patient was treated at: [facility] Was this only an ER visit or was the patient admitted to the hospital? Admitted to the hospital/kept overnight Date of visit if ER visit only: If patient was admitted what was the date of discharge? 05/19/25 Reason/diagnosis for visit or stay: CARDIAC ARREST When was the patient told to follow up? 1-2 WEEKS Was visit or stay related to an injury? If yes, what was the date of injury (DOI)? No If yes, was the injury due to: Not 3rd alliance party related documented in this encounter Plan of Treatment Upcoming Encounters Date Type Department Care Team (Late st Contact Info) Description 05/25/2025 9:30 AM EST Office Visit Adult Medicine [address] [phone] Michael Cazares MD [address] [place] [address] 08/03/2025 11:00 AM EST Office Visit [address] [phone] Michael Cazares MD [address] [place] [address] documented as of this encounter Visit Diagnoses Not on filedocumented in this encounter Additional Health Concerns Infection Onset Date Last Indicated Resolved Time Herpes simplex 08/21/2024 08/21/2024 Assessment Noted Time PHQ-9 Depression Total Score: 1 02/07/20 25 10:07 AM EDT documented as of this encounter Care Teams Guitar Technician Relationship Specialty Start Date End Date Michael Cazares MD [address] [place] [address] PCP - General Internal Medicine 10/25/21 documented as of this encounter
--- OUTSIDE RECORDS SUMMARY | 2025-05-22 11:38 | XMS_ITS | Encounter Summary ---
Author Organization [facility] Address [address] [place] [address] Care Team Providers Care Carton Liner Name Role Phone Michael Cazares MD Primary Care Provider [phone] Reason for Referral * Imaging (Routine) - Pending Review Specialty Diagnoses / Procedures Referred By Stephen freitas Referred To Contact Radiology Diagnoses Transaminitis Procedures US Abdomen Limited Michael Cazares MD [address] [place] [address] Phone: tel: fax: [address] Phone: tel: Referral ID Status Reason Start Date Expiration Date V isits Requested Visits Authorized [id number] Pending Review 04/01/2025 04/01/2026 1 1 Encounter Details Date Type Department Care Team (Late st Contact Info) Description 04/01/2025 Results Follow-Up Adult Medicine [address] [phone] Michael Cazares MD [address] [place] [address] Social History Tobacco Use Types Packs/Day Years [...] for your loved ones. For example, child care aide or elderly care for an older adult? [...] 05/25/2025 9:30 AM EST Office Visit Adult [address] [phone] Michael Cazares MD [address] [place] [address] 08/03/2025 11:00 AM EST Office Visit [address] [phone] Michael Cazares MD [address] [place] [address] documented as of this encounter Results * US Abdomen Limited (04/05/2025 10:49 AM EDT) Anatomical Region Laterality Modality Body Ultrasound 04/13/2025 1:47 PM EDT Impressions 04/13/2025 1:48 PM EDT Mildly echogenic hepatic parenchyma, suggesting mild steatosis. -------- FINAL REPORT -------- Dictated By: Derrick Crane Dictated Date: 04/13/2025 13:47 ET Assigned Physician: Derrick Crane Reviewed and Electronically Signed By: Derrick Crane Signed Date: 04/13/2025 13:48 ET Workstation ID: [id number] Transcribed By: Self Edit Transcribed Date: 04/13/2025 13:47 ET Narrative 04/13/2025 1:48 PM EDT PROCEDURE: Right upper quadrant ultrasound. HISTORY: Transaminitis. COMPARISON: Upper gastrointestinal study 02/05/2012. TECHNIQUE: Grayscale, color Doppler, and spectral Doppler ultrasound evaluation of the right upper quadrant of the abdomen. FINDINGS: LIVER: Echogenic parenchyma. No focal lesion. Normal flow in the main portal vein. BILIARY: Normal gallbladder. Negative sonographic Velez sign. Normal caliber biliary tree with no ductal filling defect. PANCREAS: Visualized portions are normal. RIGHT KIDNEY: Normal size and echotexture. No hydronephrosis or focal lesion. SPLEEN: Normal size. No focal lesion. Procedure Note Derrick Crane MD - 04/13/2025 PROCEDURE: Right upper quadrant ultrasound. HISTORY: Transaminitis. COMPARISON: Upper gastrointestinal study 02/05/2012. TECHNIQUE: Grayscale, color Doppler, and spectral Doppler ultrasoundevaluation of the right upper quadrant of the abdomen. FINDINGS: LIVER: Echogenic parenchyma. No focal lesion. Normal flow in the mainportal vein. BILIARY: Normal gallbladder. Negative sonographic Velez sign. Normalcaliber biliary tree with no ductal filling defect. PANCREAS: Visualized portions are normal. RIGHT KIDNEY: Normal size and echotexture. No hydronephrosis or focallesion. SPLEEN: Normal size. No focal lesion. IMPRESSION: Mildly echogenic hepatic parenchyma, suggesting mild steatosis. -------- FINAL REPORT -------- Dictated By: Derrick Crane Dictated Date: 04/13/2025 13:47 ET Assigned Physician: Derrick Crane Reviewed and Electronically Signed By: Derrick Crane Signed Date: 04/13/2025 13:48 ET Workstation ID: [id number] Transcribed By: Self Edit Transcribed Date: 04/13/2025 13:47 ET Michael Cazares MD [facility] Final Res ult documented in this encounter Visit Diagnoses Diagnosis Transaminitis- Primary Nonspecific elevation of levels of transaminase or lactic acid dehydrogenase (LDH) Transaminitis Nonspecific elevation of levels of transaminase or lactic acid dehydrogenase (LDH) documented in this encounter Additional Health Concerns Infection Onset Date Last Indicated Resolved Time Herpes simplex 08/21/2024 08/21/2024 Assessment Noted Time PHQ-9 Depression Total Score: 1 02/07/20 25 10:07 AM EDT documented as of this encounter Care Teams Carton Liner Relationship Specialty Start Date End Date Michael Cazares MD [address] [place] [address] PCP - General Internal Medicine 10/25/21 documented as of this encounter
--- OUTSIDE RECORDS SUMMARY | 2025-05-22 11:38 | XMS_ITS | Clinical Summary ---
Author Organization Patient Business Ser [facility] [place] Address [address] [place] [address] Care Team Providers Care Unemployment Insurance Hearing Officer Name Role Phone Michael Cazares MD Primary Care Provider [phone] Allergies Active Allergy Reactions Criticality Noted Date Comments Metoclopramide Hcl Medium 01/23/2020 Reglan Other Reaction(s): OTHER Patient states that while he was given Reglan and Zofran at the emergency room at 1 time, he suffered from tachycardia and was told that it was the combination of 2 medicines of Zofran and Reglan which caused the tachycardia Medications acetaminophen (TYLENOL 8 HOUR) 650 mg 8 hr tablet Take 1 Tablet by mouth every 8 hours as needed. 03/04/2024 Active fluticasone propionate (FLONASE) 50 mcg/actuation nasal spray 2 Sprays by Nasal route daily. 03/06/2024 Active cyclobenzaprine (FLEXERIL) 5 mg tablet Take 1 tablet (5 mg total) by mouth at bedtime as needed for muscle spasms. 30 tablet 1 04/01/2025 5 Active Active Problems Problem Noted Date Diagnosed Date Abdominal bloating 05/27/2024 Abdominal discomfort 05/27/2024 Change in bowel habits 05/27/2024 Early satiety 05/27/2024 GERD (gastroesophageal reflux disease) 4 Helicobacter positive gastritis 05/27/2024 Hiatal hernia 05/27/2024 Umbilical hernia 05/27/2024 Osteoarthritis of left knee 02/21/2024 Snoring 01/31/2021 Overview (05/27/2024): 12/2020 Home Sleep Study did not reveal sleep apnea or nocturnal hypoxia. COVID-19 virus infection 10/28/2020 Overview (05/27/2024): 10/27/2020 Anxiety and depression 02/06/2019 Elevated LFTs 02/05/2019 Hepatic cyst 02/03/2019 Overview (05/27/2024): Exophtyic Hypertension 02/03/2019 Palpitations 02/03/2019 Eczema 07/30/2008 Encounters Date Type Department Care Team Description 05/21/2025 Telephone Adult [address] [phone] Bridget Pope [place] 04/13/2025 Results Follow-Up [address] [phone] Michael Cazares MD 04/05/2025 10:26 AM EDT - 04/05/2025 11:59 PM EDT Hospital Encounter [facility] Ultrasound [address] [place] [address] Transaminitis Discharge Disposition: Home or Self Care 04/01/2025 2:09 PM EDT - 04/01/2025 11:59 PM EDT Hospital Encounter [address] [phone] Acute bilateral low back pain without sciatica Discharge Disposition: Home or Self Care 04/01/2025 1:45 PM EDT Office Visit [address] [phone] Michael Cazares MD Acute bilateral low back pain without sciatica (Primary Dx); Elevated serum creatinine; Transaminitis 04/01/2025 Results Follow-Up [address] [phone] Michael Cazares MD 02/26/[address] [phone] Michael Cazares MD 02/25/2025 9:00 AM EDT Office Visit Adult Medicine [address] [phone] Michael Cazares MD Muscle twitching (Primary Dx); Anxiety and depression; Dysuria; Hyperreflexia from Last 3 Months Immunizations Immunization Administration Dates Next Due COVID-19 Seasonal (Novavax) [...] Date Smoking Tobacco: Never Smokeless Tobacco: Never Tobacco Cessation:Counseling Given: Not Answered Alcohol Use Standard Drinks/Week Comments Yes 0 [...] care for your loved ones. For example, early childhood education specialist or elderly care for an older adult? [...] PM EDT Sexual Orientation Not on file Obstetrics History Last Filed Vital Signs Vital Sign Reading Time Taken Comments Blood Pressure 122/87 04/01/2025 1:40 PM EDT Pulse 78 04/01/2025 1:40 PM EDT Temperature 35.6 C (96.1 F) 04/01/2025 1:40 PM EDT Respiratory Rate 16 02/06/2025 10:16 AM EDT Oxygen Saturation 98% 08/21/2024 1:28 PM EST Inhaled Oxygen Concentration - - Weight 92.1 kg (203 lb) 04/01/2025 1:40 PM EDT Height 170.2 cm (5' 7 ) 04/01/2025 1:40 PM EDT Body Mass Index 31.79 04/01/2025 1:40 PM EDT Plan of Treatment Upcoming Encounters Date Type Department Care Team (Late st Contact Info) Description 05/25/2025 9:30 AM EST Office Visit Adult Medicine [address] [phone] Michael Cazares MD [address] [place] [phone] 08/03/2025 11:00 AM EST Office Visit Adult Medicine [address] [phone] Michael Cazares MD [address] [place] [address] Health Maintenance Due Date Last Done Comments HPV Vaccines (1 - 3-dose SCDM series) 10/22/2011 Hepatitis B Vaccines (2 of 3 - 19+ 3-dose series) 09/10/2017 08/13/2017 COVID-19 Vaccine (3 - season) 2025 04/13/2022, 03/23/2022 Influenza Vaccine (#1) 2025 8, 05/02/2010, 04/21/2008, Additional history exists Social Influencers of Health Screening 02/06/2026 02/06/2025 Hypertension/CHF/CAD Annual BMP Blood Test 04/01/2026 04/01/2025, 02/25/2025, 02/09/2025, Additional history exists DTaP,Tdap,and Td Vaccines (5 - Td or Tdap) 08/17/2027 08/17/2017, 02/06/2014, 08/17/2011, Additional history exists Cholesterol Screening (Lipid Panel) 02/09/2030 02/09/2025, 01/12/2023 RSV Immunization Adult Patients (1 - 1-dose 75+ series) 10/22/2059 Varicella Vaccines Aged Out 08/16/2017 No longer eligible based on patient's age to complete this topic Hepatitis C Screening Completed 08/21/2024, 023 Depression Screening Completed 02/06/2025, 02/21/20 24 HIV Screening Completed 02/09/2025, 08/03, 01/12/2023 HIB Vaccines Aged Out No longer eligi [...] on patient's age to complete this topic Pneumococcal Vaccine: Pediatrics (0 to 5 Years) and At-Risk Patients (6 to 49 Years) Aged Out No longer eligible based on patient's age to complete this topic RSV Immunization Patients Under 20 months Aged Out No longer eligible based on patient's age to complete this topic Procedures Procedure Name Priority Date/Time Associated Diagnosis Comments US ABDOMEN LIMITED Routine 04/05/2025 10 :49 AM EDT Transaminitis COMPREHENSIVE METABOLIC PANEL Routine 04/01/2025 2:27 PM EDT Elevated serum creatinine Transaminitis XR LUMBAR SPINE 4+ VIEWS Routine 04/01/2025 2:17 PM EDT Acute bilateral low back pain without sciatica JACOBS URINE CULTURE TUBE Routine 02/26/20 9:45 AM EDT Dysuria URINALYSIS WITH REFLEX MICROSCOPIC AND CULTURE Routine 02/25/2025 9:45 AM EDT Dysuria MAGNESIUM Routine 02/25/2025 9:45 AM EDT Muscle twitching BASIC METABOLIC PANEL Routine 02/25/2025 9:45 AM EDT Muscle twitching CREATINE KINASE Routine 02/25/2025 9:45 AM EDT Muscle twitching URINALYSIS WITH REFLEX MICROSCOPIC AND CULTURE Routine 02/25/2025 9:45 AM EDT Dysuria HIV 1, 2 ANTIBODY, P24 ANTIGEN WITH REFLEX TO DIFFERENTIATION Routine 02/09/2025 8:38 AM EDT Adult general medical examination Screening cholesterol level Screening for diabetes mellitus Screening examination for STD (sexually transmitted disease) LIPID PANEL WITH REFLEX TO DIRECT LDL Routine 02/09/2025 8:38 AM EDT Adult general medical examination Screening cholesterol level Screening for diabetes mellitus HEPATITIS PANEL, ACUTE WITH REFLEX TO CONFIRMATION Routine 08/21/2024 2:24 PM EST Dysuria Screen for STD (sexually transmitted disease) HM DEPRESSION SCREENING Routine 02/21/2024 from Last 3 Months or Most Recently Relevant to Health Maintenance Results * US Abdomen Limited (04/05/2025 10:49 AM EDT) Anatomical Region Laterality Modality Body Ultrasound 04/13/2025 1:47 PM EDT Impressions 04/13/2025 1:48 PM EDT Mildly echogenic hepatic parenchyma, suggesting mild steatosis. -------- FINAL REPORT -------- Dictated By: Derrick Crane Dictated Date: 04/13/2025 13:47 ET Assigned Physician: Derrick Crane Reviewed and Electronically Signed By: Derrick Crane Signed Date: 04/13/2025 13:48 ET Workstation ID: [id number] Transcribed By: Self Edit Transcribed Date: 04/13/2025 [...] Signed Date: 04/13/2025 13:48 ET Workstation ID: [id number] Transcribed By: Self Edit Transcribed Date: 04/13/2025 13:47 ET us Michael Cazares MD [facility] US PROCEDURES Final Res ult * (ABNORMAL) Comprehensive metabolic panel (04/01/2025 2:27 PM EDT) Sodium 136 133 - 145 mmol/L LAB CHEMISTRY METHOD 04/01/2025 5:45 PM [facility] Potassium 4.2 3.5 - 5.5 mmol/L LAB CHEMISTRY METHOD 04/01/2025 5:45 PM [facility] Chloride 103 96 - 110 mmol/L LAB CHEMISTRY METHOD 04/01/2025 5:45 PM [facility] CO2 28 21 - 32 mmol/L LAB CHEMISTRY METHOD 04/01/2025 5:45 PM [facility] Anion Gap 5 3 - 11 LAB CHEMISTRY METHOD 04/01/2025 5:45 PM [facility] Glucose 93 70 - 100 mg/dL LAB CHEMISTRY METHOD 04/01/2025 5:45 PM [facility] BUN 16 5 - 25 mg/dL LAB CHEMISTRY METHOD 04/01/2025 5:45 PM [facility] Creatinine 1.25 0.70 - 1.30 mg/dL LAB CHEMISTRY METHOD 04/01/2025 5:45 PM [facility] eGFR 75 >=60 mL/min/1. 73m2 LAB CHEMISTRY METHOD 04/01/2025 5:45 PM [facility] Comment:Calculation based on the Chronic Kidney Disease Epidemiology Collaboration (CKD-EPI) equation refit without adjustment for race. BUN/Creatinine Ratio 12.8 LAB CHEMISTRY METHOD 04/01/2025 5:45 PM [facility] Calcium 9.3 8.5 - 10.5 mg/dL LAB CHEMISTRY METHOD 04/01/2025 5:45 PM [facility] AST (SGOT) 44(H) 10 - 42 unit/L LAB CHEMISTRY METHOD 04/01/2025 5:45 PM [facility] ALT (SGPT) 82(H) 10 - 60 unit/L LAB CHEMISTRY METHOD 04/01/2025 5:45 PM [facility] Alkaline Phosphatase 60 42 - 121 unit/L LAB CHEMISTRY METHOD 04/01/2025 5:45 PM [facility] Total Protein 7.9 6.0 - 8.0 g/dL LAB CHEMISTRY METHOD 04/01/2025 5:45 PM [facility] Albumin 4.4 3.2 - 5.0 g/dL LAB CHEMISTRY METHOD 04/01/2025 5:45 PM [facility] Total Bilirubin 0.4 0.0 - 1.4 mg/dL LAB CHEMISTRY METHOD 04/01/2025 5:45 PM [facility] Blood Venous blood specimen / Unknown Venipuncture / Unknown 04/01/2025 2:27 PM EDT 04/01/2025 2:27 PM EDT us Michael Cazares MD LAB BLOOD ORDERABLES Final Result [facility] [address] [place] [address], * XR Lumbar Spine 4+ Views (04/01/2025 2:17 PM EDT) Anatomical Region Laterality Modality Spine, L-spine Radiographic Marjorie ging 04/02/2025 10:1 9 AM EDT Impressions 04/02/2025 10:26 AM EDT Transitional anatomy. Mild degenerative changes. -------- FINAL REPORT -------- Dictated By: Candelaria Chaidez Dictated Date: 04/02/2025 10:19 ET Assigned Physician: Candelaria Chaidez Reviewed and Electronically Signed By: Candelaria Chaidez Signed Date: 04/02/2025 10:26 ET Workstation ID: [id number] Transcribed By: Self Edit Transcribed Date: 04/02/2025 10:19 ET Narrative 04/02/2025 10:26 AM EDT EXAM: Lumbar spine x-ray HISTORY: Acute bilateral low back pain without sciatica. COMPARISON: None FINDINGS: 4 views of the lumbar spine were performed. 4 lumbar type vertebral bodies and a transitional vertebra. Vertebral body heights are maintained. Mild diffuse disc space narrowing. No evidence of spondylolysis or spondylolisthesis. Procedure Note Candelaria Chaidez MD - 04/02/2025 EXAM: Lumbar spine x-ray HISTORY: Acute bilateral low back pain without sciatica. COMPARISON: None FINDINGS: 4 views of the lumbar spine were performed. 4 lumbar type vertebral bodies and a transitional vertebra. Vertebral bodyheights are maintained. Mild diffuse disc space narrowing. No evidence ofspondylolysis or spondylolisthesis. IMPRESSION: Transitional anatomy. Mild degenerative changes. -------- FINAL REPORT -------- Dictated By: Candelaria Chaidez Dictated Date: 04/02/2025 10:19 ET Assigned Physician: Candelaria Chaidez Reviewed and Electronically Signed By: Candelaria Chaidez Signed Date: 04/02/2025 10:26 ET Workstation ID: [id number] Transcribed By: Self Edit Transcribed Date: 04/02/2025 10:19 ET us Michael Cazares MD IMG XR PROCEDURES Final Res ult * Urinalysis with reflex microscopic and culture (02/25/2025 9:45 AM EDT) Specific [place] Urine 1.023 1.003 - 1.030 LAB URINALYSIS - AUTOMATED METHOD 02/25/2025 12:03 PM [facility] pH, Urine 5.5 5.0 - 8.0 pH LAB URINALYSIS - AUTOMATED METHOD 02/25/2025 12:03 PM [facility] Leukocytes, Urine Negative Negative LAB URINALYSIS - AUTOMATED METHOD 02/25/2025 12:03 PM [facility] Nitrite, Urine Negative Negative LAB URINALYSIS - AUTOMATED METHOD 02/25/2025 12:03 PM [facility] Protein, Urine Negative <=Trace mg/dL LAB URINALYSIS - AUTOMATED METHOD 02/25/2025 12:03 PM [facility] Glucose, Urine Negative Negative mg/dL LAB URINALYSIS - AUTOMATED METHOD 02/25/2025 12:03 PM [facility] Ketones, Urine Negative Negative mg/dL LAB URINALYSIS - AUTOMATED METHOD 02/25/2025 12:03 PM [facility] Urobilinogen, Urine 0.2 0.2 - 1.0 mg/dL LAB URINALYSIS - AUTOMATED METHOD 02/25/2025 12:03 PM [facility] Bilirubin, Urine Negative Negative LAB URINALYSIS - AUTOMATED METHOD 02/25/2025 12:03 PM [facility] Blood, Urine Negative Negative LAB URINALYSIS - AUTOMATED METHOD 02/25/2025 12:03 PM [facility] Urine Urine specimen obtained by clean catch procedure / Unknown Non-blood Collection / Unknown 02/25/2025 9:45 AM EDT 02/25/2025 9:45 AM EDT us Michael Cazares MD LAB URINE ORDERABLES Final Result Performing Organization Address City/[facility]/ZIP Co de Phone Number [facility] [address] [place] [address], [place] [phone] * Jacobs urine culture tube (02/25/2025 9:45 AM EDT) Extra Tube Hold for add-ons. 02/25/2025 3:01 PM EDT [facility] Comment:Auto resulted. Urine Urine specimen obtained by clean catch procedure / Unknown Non-blood Collection / Unknown 02/25/2025 9:45 AM EDT 02/25/2025 9:45 AM EDT Michael Cazares MD LAB URINE ORDERABLES Final Result Performing Organization Address [facility]/ZIP Co de Phone Number [facility] [address] [place] [address], [place] [phone] * Magnesium (02/25/2025 9:45 AM EDT) Pathologist [facility] Magnesium 2.0 1.9 - 2.6 mg/dL LAB CHEMISTRY METHOD 02/25/2025 1:03 PM EDT [facility] Blood Venous blood specimen / Unknown Venipuncture / Unknown 02/25/2025 9:45 AM EDT 02/25/2025 9:45 AM EDT us Michael Cazares MD LAB BLOOD ORDERABLES Final Result [facility] [address] [place] [address], [place] [phone] * Creatine kinase (02/25/2025 9:45 AM EDT) [facility] Total CK 187 22 - 269 unit/L LAB CHEMISTRY METHOD 02/25/2025 1:10 PM [facility] Blood Venous blood specimen / Unknown Venipuncture / Unknown 02/25/2025 9:45 AM EDT 02/25/2025 9:45 AM EDT Michael Cazares MD LAB BLOOD ORDERABLES Final Result [facility] [address] [place] [address], [place] [phone] * (ABNORMAL) Basic metabolic panel (02/25/2025 9:45 AM EDT) [facility] Sodium 136 133 - 145 mmol/L LAB CHEMISTRY METHOD 02/25/2025 1:10 PM [facility] Potassium 4.3 3.5 - 5.5 mmol/L LAB CHEMISTRY METHOD 02/25/2025 1:10 PM [facility] Chloride 102 96 - 110 mmol/L LAB CHEMISTRY METHOD 02/25/2025 1:10 PM [facility] CO2 30 21 - 32 mmol/L LAB CHEMISTRY METHOD 02/25/2025 1:10 PM [facility] Anion Gap 4 3 - 11 LAB CHEMISTRY METHOD 02/25/2025 1:10 PM [facility] Glucose 95 70 - 100 mg/dL LAB CHEMISTRY METHOD 02/25/2025 1:10 PM [facility] BUN 19 5 - 25 mg/dL LAB CHEMISTRY METHOD 02/25/2025 1:10 PM [facility] Creatinine 1.31(H) 0.70 - 1.30 mg/dL LAB CHEMISTRY METHOD 02/25/2025 1:10 PM [facility] eGFR 71 >=60 mL/min/1. 73m2 LAB CHEMISTRY METHOD 02/25/2025 1:10 PM EDT [facility] Comment:Calculation based on the Chronic Kidney Disease Epidemiology Collaboration (CKD-EPI) equation refit without adjustment for race. BUN/Creatinine Ratio 14.5 LAB CHEMISTRY METHOD 02/25/2025 1:10 PM EDT [facility] Calcium 10.1 8.5 - 10.5 mg/dL LAB CHEMISTRY METHOD 02/25/2025 1:10 PM EDT [facility] Blood Venous blood specimen / Unknown Venipuncture / Unknown 02/25/2025 9:45 AM EDT 02/25/2025 9:45 AM EDT Michael Cazares MD LAB BLOOD ORDERABLES Final Result Performing Organization Address [facility]/ZIP Co de Phone Number [facility] [address] [place] [address], * HIV 1,2 antibody, p24 antigen with reflex to differentiation (02/09/2025 8:38 AM EDT) HIV Combo AB/AG Negative Negative LAB CHEMISTRY METHOD 02/09/2025 12:05 PM EDT [facility] Blood Venous blood specimen / Unknown Venipuncture / Unknown 02/09/2025 8:38 AM EDT 02/09/2025 8:38 AM EDT Narrative [facility] - 02/09/2025 12:05 PM EDT This assay is a 4th generation assay allowing for earlier detection of HIV infection by detecting the presence of the HIV-1 p24 antigen as well as the traditional antibodies to HIV type 1 (including group O) and type 2. Use of a 4th generation assay is the current CDC recommendation for HIV screening. Jennifer CHOWDHURY LAB BLOOD ORDERABLES Fin al Result Performing Organization Address City/[facility]/ZIP Co de Phone Number [facility] [address] [place] [address], [place] [phone] * (ABNORMAL) Lipid panel with reflex to direct LDL (02/09/2025 8:38 AM EDT) Cholesterol 198 0 - 200 mg/dL LAB CHEMISTRY METHOD 02/09/2025 10:41 AM EDT [facility] Triglycerides 262(H) 0 - 150 mg/dL LAB CHEMISTRY METHOD 02/09/2025 10:41 AM EDT [facility] HDL 50 >=40 mg/dL LAB CHEMISTRY METHOD 02/09/2025 10:41 AM EDT [facility] LDL Calculated 96 0 - 100 mg/dL LAB CHEMISTRY METHOD 02/09/2025 10:41 AM EDT [facility] Comment:Estimated LDL Calcul ated using equation: Total cholesterol - HDL cholesterol - (Triglycerides/5) VLDL Cholesterol Michele 52.4 mg/dL LAB CHEMISTRY METHOD 02/09/2025 10:41 AM EDT [facility] Non HDL Chol. (LDL+VLDL) 148(H) <145 mg/dL LAB CHEMISTRY METHOD 02/09/2025 10:41 AM EDT [facility] Chol/HDL Ratio 4.0 0.0 - 4.4 LAB CHEMISTRY METHOD 02/09/2025 10:41 AM EDT [facility] Blood Venous blood specimen / Unknown Venipuncture / Unknown 02/09/2025 8:38 AM EDT 02/09/2025 8:38 AM EDT us Jennifer CHOWDHURY LAB BLOOD ORDERABLES Fin al Result [facility] [address] [place] [address], [place] [phone] * Hepatitis panel, acute with reflex to confirmation (08/21/2024 2:24 PM EST) Hepatitis B Surface Ag Negative Negative LAB CHEMISTRY METHOD 08/21/2024 7:24 PM EST [facility] Hepatitis A Antibody IgM Negative Negative LAB CHEMISTRY METHOD 08/21/2024 7:24 PM EST [facility] Hep B Core IgM Negative Negative LAB CHEMISTRY METHOD 08/21/2024 7:24 PM EST [facility] Hepatitis C Antibody Negative Negative LAB CHEMISTRY METHOD 08/21/2024 7:24 PM EST [facility] Blood Venous blood specimen / Unknown Venipuncture / Unknown 08/21/2024 2:24 PM EST 08/21/2024 2:24 PM EST Jennifer CHOWDHURY LAB BLOOD ORDERABLES Fin al Result [facility] [address] [place] [address], * Depression Screening (02/21/2024) Pathologist [facility] Depression Screening abstracted Historical Provider HEALTH MAINTENANCE Final Result from Last 3 Months or Most Recently Relevant to Health Maintenance Additional Health Concerns Infection Onset Date Last Indicated Herpes simplex 08/21/2024 08/21/2024 Insurance [employer] Care Teams Unemployment Insurance Hearing Officer Relationship Specialty Start Date End Date Michael Cazares MD [address] [place] [address] PCP - General Internal Medicine 10/25/21
--- OUTSIDE RECORDS SUMMARY | 2025-05-22 11:38 | XMS_ITS | Encounter Summary ---
Author Organization [facility] Address [address] [place] [id number] Phone Care Team Providers Care Front Office Administrator Name Role Phone Parish Lam MD Unavailable [phone] Radha Rhoades UNIFORMS SALES REPRESENTATIVE Unavailable Rochelle Springer UNIFORMS SALES REPRESENTATIVE Unavailable Marni Lopes UNIFORMS SALES REPRESENTATIVE Unavailable [phone] Magdalena Remy MD Primary Care Provider Unavailable Yoel Kidd MD Primary Care Provider Encounter Details Date Type Department Care Team (Late st Contact Info) Description 04/26/2018 Procedure Pass OR Admitting Dept - [facility] Department [address] [place] [id number] Social History Tobacco Use Types Packs/Day Years Used Date Smoking Tobacco: Never Smokeless Tobacco: Never Alcohol Use Standard Drinks/Week Comments No 0 (1 standard drink = 0.6 oz pur e alcohol) Sex and Gender Information Value Date Recorded Sex Assigned at Male 01/16/2020 4:22 PM EDT Legal Sex Male 9:15 PM EDT Gender Identity Male 01/16/2020 4:22 PM EDT Sexual Orientation Not on file documented as of this encounter Plan of Treatment Not on file documented as of this encounter Visit Diagnoses Not on filedocumented in this encounter Care Teams Front Office Administrator Relationship Specialty Start Date End Date Magdalena Remy MD PCP - General Internal Medicine 04/23/18 01/15/20 Yoel Kidd MD PCP - General Internal Medicine 01/16/20 Parish Lam MD [address] [place] [id number] Historical LMR Provider 04/19/17 07/09/21 Radha Rhoades NP [address] [place] [address] [email or web address] Historical LMR Provider 04/19/17 2 Rochelle Springer NP [address] [place] [address] Historical LMR Provider 04/19/17 2 Marni Lopes NP 26 [facility] [address] [place] [address] Historical LMR Provider 04/19/17 07/09/21 documented as of this encounter Additional Source Comments The information contained in this document represents components of the legal health record. It is not the complete legal health record.[facility]
--- OUTSIDE RECORDS SUMMARY | 2025-05-22 11:38 | XMS_ITS ---
Author Name [facility] Organization Unknown Encounters Encounter Type Encounter Reason Primary Diagnosis Location Date Ambulatory [facility] 12/22/2024
--- OUTSIDE RECORDS SUMMARY | 2025-05-22 11:38 | XMS_ITS | Encounter Summary ---
Author Organization [facility] Address [address] [facility] [address] [place] [phone] Phone Care Team Providers Care Tile Trimmer Name Role Phone Parish Lam MD Unavailable Rdaha Rhoades TOP LIFT NAILER Unavailable Rochelle Springer TOP LIFT NAILER Unavailable Marni Lopes TOP LIFT NAILER Unavailable [phone] Magdalena Remy MD Primary Care Provider Unavailable Yoel Kidd MD Primary Care Provider Encounter Details Date Type Department Care Team (Late st Contact Info) Description 04/25/2018 Prep for Surgery [facility] [address] [place] [id number] Jennifer Quan MD [address] [place] [address] Orthopedics & Sports Medicine, [facility] [place] [address] Social History Tobacco Use Types Packs/Day Years [...] on file documented as of this encounter Functional Status documented as of this encounter Plan of Treatment Not on file documented as of this encounter Visit Diagnoses Not on filedocumented in this encounter Care Teams Tile Trimmer Relationship Specialty Start Date End Date Magdalena Remy MD PCP - General Internal Medicine 04/23/18 01/15/20 Yoel Kidd MD PCP - General Internal Medicine 01/16/20 Parish Lam MD [address] [place] [address] Historical LMR Provider 04/19/17 07/09/21 Radha Rhoades, TOP LIFT NAILER [address] [place] [address] [email or web address] Historical LMR Provider 04/19/17 2 Rochelle Springer NP [address] [place] [address] Historical LMR Provider 04/19/17 2 Marni Lopes NP [address] [address] Historical LMR Provider 04/19/17 07/09/21 documented as of this encounter Additional Source Comments The information contained in this document represents components of the legal health record. It is not the complete legal health record.[facility]
--- OUTSIDE RECORDS SUMMARY | 2025-05-22 11:38 | XMS_ITS | Clinical Summary ---
Author Organization [facility] Address [address] [address] Phone Care Team Providers Care Patient Support Partner Name Role Phone Yoel Kidd MD Primary Care Provider Allergies Active Allergy Reactions Criticality Noted Date Comments Dog Dander 12/20/2015 Other reaction(s): ITCHY RED EYES SNEEZING House Dust Mite 12/20/2015 Other reaction(s): hives Metoclopramide Hcl Palpitations Medium 05/09/2018 Nausea, tremors Other reaction(s): OTHER Patient states that while he was given Reglan and Zofran at the emergency room at 1 time, he suffered from tachycardia and was told that it was the combination of 2 medicines of Zofran and Reglan which caused the tachycardia Medications ibuprofen (ADVIL,MOTRIN) 800 MG tablet Take 800 mg by mouth every 6 (six) hours as needed for pain (specific location in comments). Active amoxicillin (AMOXIL) 500 MG tablet 500 mg- 2 tablets twice daily with food x14 days 01/12/2020 Active albuterol 90 mcg/actuation inhaler Inhale 2 puffs into the lungs. 08/07/2020 Active famotidine (PEPCID) 20 MG tablet Take 20 mg by mouth. 06/08/2020 Active fluticasone propionate (FLONASE) 50 mcg/actuation nasal spray 1 spray per nostril BID 07/16/2020 Active hydrOXYzine (ATARAX) 25 MG tablet Take 25 mg by mouth. 12/07/2020 Active omeprazole (PRILOSEC) 40 MG capsule Take 40 mg by mouth. 06/08/2020 Active Active Problems Problem Noted Date Diagnosed Date Laceration of flexor muscle, fascia and tendon of right ring finger at wrist and hand level, initial encounter Laceration of flexor muscle, fascia and tendon of right little finger at wrist and hand level, initial encounter Digital nerve laceration, finger, initial encoun ter Family History Medical History Relation Comments Hypertension Father 2 Hypertension Mother 2 Diabetes mellitus Sibling 2 Relation Status Comments Father 1 Alive Father 2 Mother 1 Alive Mother 2 Sibling 1 Sibling 2 Social History Tobacco Use Types Packs/Day Years Used Date Smoking Tobacco: Never Smokeless Tobacco: Never Alcohol Use Standard Drinks/Week Comments No 0 (1 standard drink = 0.6 oz pur e alcohol) Education Answer Date Recorded Are you interested in more education? Not on verónica e 10/27/2022 Are you concerned about learning? Not on file 10/27/2022 No 10/27/2022 No 10/27/2022 Digital Access Answer Date Recorded No 11/27/2022 No 11/27/2022 Reliable internet access at home? Not on file 11/27/2022 Device with a working camera? Not on file Sex and Gender Information Value Date Recorded Sex Assigned at Male 01/16/2020 4:22 PM EDT Legal Sex Male 9:15 PM EDT Gender Identity Male 01/16/2020 4:22 PM EDT Sexual Orientation Not on file Last Filed Vital Signs Vital Sign Reading Time Taken Comments Blood Pressure 131/87 01/16/2020 6:07 PM EDT Pulse 62 01/16/2020 6:07 PM EDT Temperature 36.4 C (97.5 F) 01/16/2020 4:19 PM EDT Respiratory Rate 16 01/16/2020 6:07 PM EDT Oxygen Saturation 99% 01/16/2020 6:07 PM EDT Inhaled Oxygen Concentration - - Weight 85.3 kg (188 lb) 01/16/2020 4:19 PM EDT Height 170.2 cm (5' 7 ) 01/16/2020 4:19 PM EDT Body Mass Index 29.44 01/16/2020 4:19 PM EDT Plan of Treatment Health Maintenance Due Date Last Done Comments LIPID PANEL 1984 DEPRESSION SCREENING 1996 HEPATITIS C SCREENING 2002 HIV ONE-TIME SCREENING (18-65 YEARS) 2002 INFLUENZA VACCINE (#1) 2025 8, 05/02/2010, 04/21/2008, Additional history exists COVID-19 VACCINE ( - 2024-26 season) 2025 Adult Td,Tdap Booster 08/17/2027 08/17/2017 , 02/06/2014, 08/17/2011, Additional history exists SMOKING STATUS SCREENING (Once After 26 Yrs) Completed 02/17/2021 HEPATITIS A VACCINES Aged Out No long er eligible based on patient's age to complete this topic HIB VACCINES Aged Out No longer eligi ble based on patient's age to complete this topic MENINGOCOCCAL VACCINES (ACWY) Aged Out No longer eligible based on patient's age to complete this topic MENINGOCOCCAL VACCINES (B) Aged Out N o longer eligible based on patient's age to complete this topic PNEUMOCOCCAL VACCINES (0-49 years) Aged Out No longer eligible based on patient's age to complete this topic Medical Devices Not on file Insurance [facility] [employer] [facility] [place] [facility] [employer] ALL[facility] [place] [employer] [facility] [employer] [facility] [employer] [facility] [employer] [facility] [employer] Advance Directives For more information, please contact: [phone] (9AM - 5PM [facility], Sunday-Sunday) * Full Code (Presumed) (Latest Code Status on File) Date Activated Date Inactivated Comments 04/26/2018 10:07 AM 04/26/2018 7:55 PM Care Teams Patient Support Partner Relationship Specialty Start Date End Date Yoel Kidd MD PCP - General Internal Medicine 01/16/20 Additional Source Comments The information contained in this document represents components of the legal health record. It is not the complete legal health record.[facility]
== END 2025-05-22 11:44 | disposition home or self-care (01) ==
LOC: HO.HSM 10:49
PROVIDERS: PCP Internal Medicine; Visit Provider Nurse Practitioner
DX: R25.3 Fasciculation (principal)
CPT/HCPCS: 99204

== ENCOUNTER 2025-06-15 09:57 | Outpatient (AMB) | payer OTHER, SELFPAY ==
--- NOTE | 2025-06-15 10:06 | MHC.OFFVIS ---
Vital Signs 06/15/25 10:08 Height 5 ft 8 in Weight 202 lb 6.15 oz BMI 30.8 BP 120/82 Blood Pressure Location Lt brachial Position Sitting Pulse 66 Pulse Source Monitor Intake Visit Reasons: f/up- [facility] Cath [place] [facility] [place] Consumer Marketing Specialist Required: No Accompanied by: Self / Same As Patient Allergies metoclopramide (From Reglan) Adverse Reaction (Verified 05/22/25 11:04) Palpitations Medication List - Last Reconciled 06/15/25 by Kalia Kent MD acetaminophen ER (Tylenol 8 Hour) 650 mg PO Q8H PRN amiodarone mg PO aspirin 81 mg PO DAILY clopidogrel 75 mg PO DAILY metoprolol succinate ER 25 mg PO DAILY pantoprazole 40 mg PO BID HPI Comments Details: 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 He was seen during STEMI call at [facility] on 05/13/2025 when he presented with VFib arrest. He was emergently taken for cardiac catheterization. 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 He was conservatively treated with heparin aspirin and Plavix. He was extubated and eventually discharged home. He is here for follow-up now. He is saying that he is getting some sharp chest pains which are pleuritic in nature and are related to CPR. He went back to [facility] 1 time after discharge from the hospital for chest pain and was observed for 24 hours. He is starting cardiac rehabilitation tomorrow. 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 He is on amiodarone 200 mg daily. He is unsure about duration told to him by Cardiology at [facility]. We will look into that. COUNT INCLUDES THE [facility] Medical History (Updated 06/15/25 @ 10:39 by Kalia Kent MD) Palpitations Hiatal hernia Hypertension Dysuria Hepatic cyst Acid reflux Eczema Anxiety and depression Hyperreflexia Muscle twitching Pain in left testicle H. pylori infection Asthma Anxiety Surgical History (Updated 06/15/25 @ 10:09 by Daiana Nance CMA) Hx of cardiac cath H/O knee surgery Family History (Updated 05/20/25 @ 09:54 by Rao Kenney CMA) Mother Hypertension Asthma Anxiety TIA (transient ischemic attack) Father Asthma Hypertension Social History (Updated 05/20/25 @ 09:55 by Rao Kenney [facility]) Alcohol intake: current Patient Tobacco Use Status: Never used Tobacco Review of Systems Const Denies chills, Denies fatigue, Denies fever(s), Denies frequent falls, Denies weakness, Denies weight gain and Denies weight loss ENT Denies dizziness Card Denies chest pain, Denies leg edema, Denies lightheadedness, Denies palpitations, Denies dyspnea, Denies dyspnea on exertion and Denies orthopnea Resp Denies cough, Denies dyspnea and Denies dyspnea on exertion GI Denies bloating and Denies change in bowel habits Musc Denies muscle weakness, Denies numbness and Denies tingling Neuro Denies dizziness, Denies frequent falls, Denies numbness, Denies tingling and Denies weakness Endo Denies fatigue and Denies palpitations Physical Exam Vital Signs: Last Vital Signs Pulse 66 06/15/25 10:08 BP 120/82 06/15/25 10:08 BMI result Body Mass Index 30.8 GENERAL APPEARANCE: in no acute distress, pleasant. NECK: no carotid bruit, no jugular venous distention. SKIN: no suspicious lesions, warm and dry. HEART: no murmurs, regular rate and rhythm. LUNGS: clear to auscultation bilaterally. ABDOMEN: soft, nontender. EXTREMITIES: no edema. PERIPHERAL PULSES: equal. NEUROLOGIC: No gross deficits, AAO X 3 Office Procedures EKG Details: NSR 66/min, LPFB, inf infarct, QTc 442 msec. 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 He was conservatively treated and improved. He is currently on aspirin and Plavix, this should be continued for 6 months. After 6 months we should continue single antiplatelet therapy. Agree with beta-rashawn and would continue same dose for now. He is on amiodarone which I will confirm with electrophysiology at [facility] about the duration. Clearly he has VFib arrest was related to ischemia secondary to spontaneous coronary artery dissection. He will start cardiac rehabilitation. He has been referred to [place] to a spontaneous coronary artery dissection specialist. I will check his records at [facility] whether he had scanning done to rule out FMD, otherwise we will scan him. Thank you for allowing me to participate in the care of your patient. Please feel free to contact me if you have any questions. Coding Level of Care Code Est Pt Level 4 (15611) Diagnoses Spontaneous dissection of coronary artery I25.42 CPT Codes EKG - CPT: 41929-[id number], Complete ([id number])
[2025-06-15 10:08] VITALS: BP 120/82; PULSE 66; BMI 30.8
== END 2025-06-15 10:47 | disposition home or self-care (01) ==
PROVIDERS: PCP Internal Medicine; Visit Provider Internal Medicine Cardiovascular Disease
DX: I25.42 Coronary artery dissection (principal)
CPT/HCPCS: 93010; 99214

== ENCOUNTER → 2025-06-15 09:57 | Outpatient (BNVA) | payer OTHER, SELFPAY | PROVIDERS: PCP Internal Medicine; Visit Provider Internal Medicine Cardiovascular Disease | DX: I25.42 Coronary artery dissection (principal); Z79.82 Long term (current) use of aspirin; I10 Essential (primary) hypertension; Z79.899 Other long term (current) drug therapy; Z79.02 Long term (current) use of antithrombotics/antiplatelets | CPT/HCPCS: 93005 ==